=== PATIENT | male | born 1965 | race Caucasian/White ===

== ENCOUNTER → 2018-01-16 09:19 | Outpatient (CLI) | payer OTHER, SELFPAY ==
[2018-01-16 10:43] LABS: Anion Gap 6 (5-15); BUN 20 mg/dL (7-18); BUN/Creat Ratio 20.6 RATIO (10-20); Calcium,Total 8.8 mg/dL (8.5-10.1); Chloride 102 mmol/L (98-107); Creatinine, Serum 0.97 mg/dL (0.70-1.30); EST Glomerular Filtration Rate 86 mL/min (>60); Est Glom Filt Rate - Afr Amer 104 mL/min (>60); Glucose 95 mg/dL (74-106); Potassium 3.4 mmol/L (3.5-5.1); Sodium Level 139 mmol/L (136-145); Thyroid Stim Hormone (TSH) 2.48 uIU/mL (0.358-3.74)
== END ==
PROVIDERS: Family Provider Family Medicine; PCP Family Medicine; Visit Provider Family Medicine
DX: I10 Essential (primary) hypertension (principal)
CPT/HCPCS: 36415; 80048; 84443

== ENCOUNTER → 2018-02-25 13:29 | Outpatient (CLI) | payer OTHER, SELFPAY ==
--- NOTE | 2018-02-25 13:38 | STEWCON_ITS ---
Reason For Study: Chest Pain; Fatigue Stress Results Protocol: [place] Protocol Maximum Predicted HR: 167 bpm Target HR: 142 bpm% Max imum Predicted HR: 92 % DurationHeart Rate Stage (mm:ss) (bpm) BPCom ment Baseline 65 132/74 Definity 4 ML Given Diluted; No Chest Pain [place] Protocol Stage I 3:00 12 5 140/70No Chest Pain [place] Protocol Stage II 3:00 14 1 160/744/10 Right Sided Chest Pressure [place] Protocol Stage III 1:45 15 3 / 4/1 0 Chest Pressure, Moderate Dyspnea Recovery 90 124/80 No Chest Pain Stress Duration: 7:45 mm:ss Maximum Stress HR: 153 bpmM ETS: 10 Baseline Echocardiogram Findings The estimated ejection fraction is 65 %. Stress Echo Wall motion Data Resting WMIntermediate WMStress WM Resting Wall Motion Wall Motion Stress No regional wall motion Mid-Anterior : Severely abnormalities noted. Hypokinetic. Mid-anteroseptal : Severly Hypokinetic. Anterior [place] : Severly Hypokinetic. Ejection Fraction 45 %. EKG Data The baseline ECG demonstrates normal sinus rhythm with at rate of _ beats per minute. The patient exercised according to the regular [place] protocol for a total duration of 7:45. The maximum heart rate attained was 155 beats per minute. This was 92% of maximum predicted heart rate. The patient exercised into stage 3 of the [place] protocol. During stress, there were no ST or T wave changes noted to suggest ischemia. Interpretation Summary The study was technically difficult. Contrast injection was performed. The estimated ejection fraction is 65 %. Mid-Anterior : Severely Hypokinetic. Mid-anteroseptal : Severly Hypokinetic. Anterior [place] : Severly Hypokinetic. Ejection Fraction 45 %. Abnormal, adequate, treadmill echocardiogram. Positive for ischemia by echocardiographic criteria. The patient appeared to develop anterior apical hypokinesis at peak exercise. Patient also developed substernal chest pain at peak exercise. Average exercise capacity for age. No associated dynamic EKG changes noted. Rare PVCs, PACs, and ventricular couplets during exercise and into recovery. Average exercise capacity for age. Test terminated due to dyspnea and chest pain. Dr. Mosqueda's office notified and message left at 2:48 PM on 02/25/18. Final LVEF=45%. Ordering Physician: Kerry Mosqueda Referring Physician: Fish Palomares MD Performed By: Daria Rojsa RDCS
== END ==
PROVIDERS: Family Provider Family Medicine; PCP Family Medicine; Visit Provider Family Medicine
DX: R07.9 Chest pain, unspecified (principal); R53.83 Other fatigue
CPT/HCPCS: 93017; 93350; Q9957; A4216; C8928

== ENCOUNTER 2018-03-01 21:16 | Observation (INO) | payer OTHER, SELFPAY ==
[2018-03-01 21:16] VITALS: BP 181/70; PULSE 77; RESP 14; TEMP 37.1; O2SAT 99; BMI 37.9
--- NOTE | 2018-03-01 21:33 | EKG12_ITS ---
Test Reason : CP Blood Pressure : / mmHG Vent. Rate : 078 BPM Atrial Rate : 078 BPM P-R Int : 172 ms QRS Dur : 100 ms QT Int : 384 ms P-R-T Axes : 047 -06 028 degrees QTc Int : 437 ms Normal sinus rhythm Inferior infarct , age undetermined , cannot be excluded Abnormal ECG Confirmed by LORI YAP, CLAIR ([id number]), acquisition editor GIOVANA GREGORY ([id number] on 03/04/2018 2:49:05 PM Referred By: Kerry Mosqueda Confirmed By:CLAIR SANDOVAL MD
--- NOTE | 2018-03-01 21:34 | RAD_ITS ---
STUDY: X-RAY CHEST REASON FOR EXAM: Male, 52 years old. Chest pain. TECHNIQUE: Frontal and lateral views of the chest. COMPARISON: None. FINDINGS: The lungs are clear and expanded. There is no demonstrated pleural abnormality. Normal size heart. Normal mediastinum and sarai. Normal visualized pulmonary arteries. Normal visualized aortic arch and descending thoracic aorta. Normal visualized thoracic spine. Normal visualized ribs, clavicles, and shoulders. There is no demonstrated abnormality of the visualized soft tissue structures of the upper abdomen. RAD/Chest PA and Lateral IMPRESSION: Normal x-ray examination of the chest. Electronically Signed: Kody Gibson MD at 21:51 EDT , Service support ,
[2018-03-01] MEDS: Aspirin 81 MG TAB.CHEW 324 MG PO (21:37)
[2018-03-01 21:41] LABS: Absolute Lymphocyte Count 2.14 X10^3/ul (0.83-4.51); Absolute Neutrophil Count 4.4 X10^3/uL (2.0-7.7); Basophil# 0.02 X10^3/uL; Basophil% 0.3 % (0-1); Eosinophil# 0.14 X10^3/uL; Eosinophils% 1.8 % (0-5); Hemoglobin 14.8 g/dl (13.0-16.5); Lymphocyte # 2.14 X10^3/ul (4.0); Lymphocyte % 27.4 % (19-41); Mean Corp Hgb Conc 32.9 g/gl (32-36); Mean Corpuscular Hgb 29.2 pg (27.0-32.0); Mean Corpuscular Volume 88.9 fL (80-94); Mean Platelet Vol. 9.1 fl (6.2-12.0); Monocyte# 1.08 X10^3/uL; Monocyte% 13.8 % (0-10); Neutrophil # 4.43 X10^3/uL (2.7-7.7); Neutrophil % 56.6 % (47-70); Platelet Count 231 K/mm3 (150-450); RBC Distribution Width CV 13.1 % (11.6-14.6); Red Blood Count 5.06 M/mm3 (4.6-6.2); White Blood Count 7.8 K/mm3 (4.4-11.0)
[2018-03-01 21:43] LABS: POSITIVE COUNT NO; POSITIVE DIFFERENTIAL NO; POSITIVE MORPHOLOGY NO
[2018-03-01 21:58] LABS: Anion Gap 4 (5-15); BUN 21 mg/dL (7-18); BUN/Creat Ratio 20.2 RATIO (10-20); Calcium,Total 8.9 mg/dL (8.5-10.1); Chloride 104 mmol/L (98-107); Creatinine, Serum 1.04 mg/dL (0.70-1.30); EST Glomerular Filtration Rate 79 mL/min (>60); Est Glom Filt Rate - Afr Amer 96 mL/min (>60); Estimated Creatinine Clearance 82.14 ml/min; Glucose 91 mg/dL (74-106); Potassium 3.6 mmol/L (3.5-5.1); Sodium Level 139 mmol/L (136-145)
--- NOTE | 2018-03-01 22:23 | ED.VISSUMM ---
- ER Visit Summary Date of Service: 03/01/18 Chief Complaint: Chest pain History of Present Illness: The patient is a 52 M who presents with chest pain. He states that he has been having pain for the past 3 months. Pain is sharp. It is located on the left chest. It is worse with exertion. He also reports dyspnea on exertion. He reports diaphoresis with the symptoms. He recently had a positive stress echo. He was scheduled to see Dr. Palomares on Friday and for likely cardiac cath on Friday. However he states today his symptoms seem worse. His pain was 6 out of 10 but currently he has no pain. His pain lasts about 1 minute. It is on the left side of the chest and radiates through to the back. Currently he is completely asymptomatic. Physical Examination: Blood pressure 181/70 vitals otherwise unremarkable Moist mucous membranes Heart regular rate and rhythm Lungs are clear Abdomen soft Extremities nontender with 2+ radial pulses Alert Test Results: EKG shows sinus rhythm at a rate of 78 there are inferior Q waves in leads III and aVF do not appreciate ST segment changes or acute ischemic changes. Labs unremarkable with a negative troponin. Two-view chest x-ray is normal. 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 He has remained in symptomatic during his workup here in the emergency department. I spoke to Dr. Leonardo. He asked that we continue aspirin and Plavix. He asked that we give subcutaneous Lovenox and also start metoprolol. We will keep the patient n.p.o. after midnight for possible cardiac catheterization tomorrow. Patient will be admitted under the hospitalist service. Treatment Plan: [] Disposition: Admit Impression: Chest pain This note was generated with [employer] dictation software. It may contain incorrect words, spelling, and punctuation that were not noted in review of the chart prior to signing ED Disposition - Plan for ED Patient: Chief Complaint: Chest Pain Referrals: Ruba Howell DO [Primary Care Provider] -
[2018-03-01 23:15] VITALS: BP 139/66; PULSE 68; RESP 18; TEMP 36.7; O2SAT 100
[2018-03-01] MEDS: Metoprolol Tartrate 25 MG Tablet PO (23:20)
[2018-03-01] MEDS: Enoxaparin 120 MG/0.8 ML Syringe 110 MG SC (23:21)
--- NOTE | 2018-03-01 23:25 | PCM.HP.STD ---
Problem List (1) Chest pain Status: Acute (2) Abnormal cardiovascular stress test Status: Acute (3) Dyspnea Status: Chronic (4) Hyperlipidemia Status: Chronic (5) Hypertension Status: Chronic History of Present Illness Date of Admission: 03/01/18 Chief Complaint: Chest pain The patient is a 52 year old male w/ h/o CAD, lipidemia, and HTN admitted for chest pain. He had a recently positive stress test. He was told by his cardiology to go to the ED if worsening chest pain. He has been having chest pain for the past 3 months. The frequency and intensity of these episodes chest pain have increased. Several hours prior to admission, he felt pressure on the left side of his chest. It is associated with diaphoresis and SOB. Pain radiated to the back and he also has back pain as well. Nothing made it better or worse. Given that the symptoms did not resolved, he came into the ED for further workup. He was supposed to see Palomares on Friday and for likely cardiac cath on Friday. Past Medical History Past Medical History (Chronic Problems): Chronic Problems (Last Updated 02/26/18 @ 09:14 by Nancy Arellano) Dyspnea (Chronic) Hyperlipidemia (Chronic) Hypertension (Chronic) Chest pain (Chronic) Allergies No Known Allergies Allergy (Unverified 03/01/18 21:20) Home Medications: Ambulatory Orders Medication Instructions Recorded amlodipine 5 mg tablet 5 mg PO QDAY 02/26/18 aspirin 81 mg tablet,delayed 81 mg PO QDAY 02/26/18 release benazepril 20 1 tab PO BID 02/26/18 mg-hydrochlorothiazide 12.5 mg tablet clopidogrel 75 mg tablet 75 mg PO QDAY #30 tab 02/26/18 montelukast 10 mg tablet 10 mg PO DAILY@1200 02/26/18 Ketotifen Fumarate [Zaditor] 5 ml OP PRN PRN 03/02/18 Surgical History: no surgical history Lives: Spouse/ Significant Other Smoking Status: Never smoker Alcohol: None Drugs: None Review of Systems Constitutional: Denies: Chills, Fever, Weight Change HEENT: Denies: Head Aches, Sinus Congestion, Sinus Drainage Cardiovascular: Reports: Chest Pain, Palpitations Respiratory: Denies: Cough, Shortness of breath at rest, Sputum production Gastrointestinal: Denies: Abdominal Pain, Nausea, Vomiting Genitourinary: Denies: Dysuria Musculoskeletal: Denies: Joint Pain, Joint Tenderness Skin: Denies: Rash, Wounds Neurological: Denies: Numbness, Tingling, Focal weakness Psychiatric: Denies: Anxiety, Depression, Homicidal Ideations, Suicidal Ideations Hematologic/ Lymphatic: Denies: Easy Bruising, Easy Bleeding VTE Information - Inpt Only VTE Present on Admission: No VTE Mechan Device Prophylaxis: SCD's VTE Pharm Prophylaxis ordered?: Yes Patient Problems: Active and Suspected Problems (Last Updated 02/26/18 @ 09:14 by Nancy Arellano) Chest pain (Acute) - Physical Exam General: Alert, Oriented x3, Cooperative HEENT: Atraumatic, PERRLA, EOMI, Normocephalic Neck: Supple, No JVD, Negative Carotid Bruits Lungs: Clear to auscultation, Normal air movement Cardiovascular: Regular rate, No murmurs Abdomen: Bowel Sounds Present, Soft, Non Tender Extremities: No edema, Capillary Refill Less than 3 Seconds Skin: No rashes, No breakdown Musculoskeletal: No Tenderness to Palpation of Joints or Extremities Neurological: Cranial nerves II-XII grossly intact Psych/Mental Status: Normal Affect, Appropriate Vital Signs Temp Pulse Resp BP Pulse Ox 98.0 F 68 18 139/66 H 100 03/01/18 23:15 03/01/18 23:15 03/01/18 23:15 03/01/18 23:15 03/01/18 23:15 Oxygen Flow Rate (L/min) 2 Oxygen Delivery Method Nasal Cannula Weight: 116.5 kg Body Mass Index (BMI) 37.9 Laboratory Tests Past 24 Hrs 03/01/18 03/01/18 21:30 21:30 WBC 7.8 RBC 5.06 Hgb 14.8 Hct 45.0 MCV 88.9 MCH 29.2 MCHC 32.9 RDW 13.1 RDW Differential 42.0 Plt Count 231 MPV 9.1 Immature Gran % (Auto) 0.100 Neut % (Auto) 56.6 Lymph % (Auto) 27.4 [place] % (Auto) 13.8 H Eos % (Auto) 1.8 Baso % (Auto) 0.3 Absolute Neuts (auto) 4.4 Absolute Lymphs (auto) 2.14 Total Counted Not Reportable Sodium 139 Potassium 3.6 Chloride 104 Carbon Dioxide 31.0 Anion Gap 4 L BUN 21 H Creatinine 1.04 Estim Creat Clear Calc 82.14 Est GFR (MDRD) Af Amer 96 Est GFR (MDRD) Non-Af 79 BUN/Creatinine Ratio 20.2 H Glucose 91 Calcium 8.9 Troponin I < 0.015 Assessment/Plan Active and Suspected Problems (Last Updated 02/26/18 @ 09:14 by Nancy Arellano) Chest pain (Acute) 52 year old male w/ h/o CAD, lipidemia, and HTN admitted for chest pain. 1) Chest pain: Positive stress test. EKG disclosed no ST elevation. Trops negative. Cards will plan for cath in AM. Lovenox and metoprolol given. Resume home meds. 2) HTN: Resume home meds. 3) CAD: Resume home meds. Monitor.
[2018-03-01 23:54] VITALS: BP 140/81; PULSE 65; RESP 16; TEMP 36.8; O2SAT 97
[2018-03-01 23:56] VITALS: BMI 37.0
[2018-03-02] VITALS (25 sets, daily range): BP systolic 99–126; BP diastolic 54–77; PULSE 51–62; RESP 10–16; TEMP 36.6–37.1; O2SAT 94–100; BMI 37.1
[2018-03-02] MEDS: 0.9% Normal Saline 1,000 ML 125 ML IV (00:30)
[2018-03-02 04:17] LABS: Hematocrit 43.8 % (40-54); Hemoglobin 14.8 g/dl (13.0-16.5); Mean Corp Hgb Conc 33.8 g/gl (32-36); Mean Corpuscular Volume 88.7 fL (80-94); Mean Platelet Vol. 9.2 fl (6.2-12.0); Platelet Count 230 K/mm3 (150-450); RBC Distribution Width CV 12.9 % (11.6-14.6); Red Blood Count 4.94 M/mm3 (4.6-6.2); White Blood Count 6.9 K/mm3 (4.4-11.0)
[2018-03-02 04:23] LABS: Scan Indicated on CBC? Y/N NO
[2018-03-02 04:29] LABS: International Normalized Ratio 1.1; Prothrombin Time (Protime)PT. 13.7 SECONDS (11.7-14.9)
[2018-03-02 04:30] LABS: Partial Thromboplast Time 35.9 Seconds (24.1-36.2)
[2018-03-02 05:04] LABS: AST(SGOT) 20 U/L (15-37); Alanine Aminotransfer ALT/SGPT 41 U/L (16-61); Albumin, Serum 3.3 g/dL (3.2-5.0); Alkaline Phosphatase 48 U/L (45-117); Anion Gap 10 (5-15); BUN 18 mg/dL (7-18); BUN/Creat Ratio 22.4 RATIO (10-20); Calcium,Total 8.4 mg/dL (8.5-10.1); Chloride 106 mmol/L (98-107); Cholesterol 183 mg/dL (200); EST Glomerular Filtration Rate 107 mL/min (>60); Est Glom Filt Rate - Afr Amer 129 mL/min (>60); Estimated Creatinine Clearance 106.79 ml/min; Globulin 3.2 g/dL (2.2-4.2); Glucose 89 mg/dL (74-106); High Density Lipoprotein 34 mg/dL; Potassium 3.9 mmol/L (3.5-5.1); Protein, Total 6.5 g/dL (6.4-8.2); Sodium Level 142 mmol/L (136-145); Thyroid Stim Hormone (TSH) 4.27 uIU/mL (0.358-3.74); Triglycerides 109 mg/dL; Very Low Density Lipoprotein 22 mg/dL (5-40)
[2018-03-02 05:28] LABS: Color, Urine Yellow (Yellow); Glucose, Dipstick Normal (Normal); Ketone-Dipstick Negative (Negative); Leukocyte Esterase-Dipstick Negative /ul (Negative); Nitrite-Dipstick Negative (Negative); Occult Blood-Urine Negative /ul (Negative); Protein-Dipstick Negative (Negative); Urine Bilirubin Dipstick Negative (Negative); Urine Clarity Sl. Cloudy (Clear); Urine Urobilinogen Normal (Normal)
--- NOTE | 2018-03-02 08:58 | PCM.CONS.C ---
Problem List (1) Unstable angina pectoris Status: Acute (2) Hyperlipidemia Status: Chronic (3) Hypertension Status: Chronic (4) Abnormal cardiovascular stress test Status: Acute Reason for Consult Date of Consultation: 03/02/18 History of Present Illness: The patient is a 52 year old white male with a past medical history which has included hyperlipidemia and hypertension who is being referred for concerns of unstable angina pectoris. He states that since November he has been having various forms of chest discomfort which include a heavy weight sensation on his chest both right and left sided, radiation to his left neck and left jaw, associated shortness of breath/dyspnea, as well as potentially diaphoretic episodes. He does not recall associated nausea or emesis. There has been no orthopnea, PND, or peripheral pitting edema above and beyond what he believes is related to his antihypertensive therapy with respect to amlodipine. There has been no near syncope or syncope. His symptoms have progressively been getting worse. Thus, he was recently referred for a stress echocardiogram. This was performed on 02/25/2018. According to the report he exercised on a [place] protocol for 7 minutes 45 seconds achieving a peak heart rate of 167 bpm (92% predicted maximal heart rate) with a peak blood pressure of 160/74 mmHg and a peak metabolic component equivalent of 10 metabolic equivalents. His baseline ECG demonstrated normal sinus rhythm. He had no exercise-induced ST or T-wave changes. His echocardiographic images were reported as technically difficult requiring IV contrast enhancement. His LVEF at rest was 65%. At exercise he developed regional wall motion abnormalities in the anterior, anteroseptal, and apical areas with an LVEF declining to 45%. He was subsequently referred for outpatient cardiovascular consultation. In the interim he was placed on additional medical management with clopidogrel/Plavix. However, since his stress test, he notes his symptoms have been worsening. Thus he presented to [facility] for further evaluation. He underwent cardiac enzymes which were reported as negative. He had an ECG performed which demonstrated normal sinus rhythm with an inferior CT pattern of indeterminate age cannot be excluded. This was repeated with no significant change. Chest x-ray was performed which suggested no acute changes. He was treated medically. He states he did have an exercise tolerance test performed several years ago. According to him that test was unremarkable. [] Past Medical History Allergies/Adverse Reactions: Allergies Seasonal Allergy (Uncoded 03/02/18 00:09) Other Home Medications: Ambulatory Orders Medication Instructions Recorded amlodipine 5 mg tablet 5 mg PO QDAY 02/26/18 aspirin 81 mg tablet,delayed 81 mg PO QDAY 02/26/18 release benazepril 20 1 tab PO BID 02/26/18 mg-hydrochlorothiazide 12.5 mg tablet clopidogrel 75 mg tablet 75 mg PO QDAY #30 tab 02/26/18 montelukast 10 mg tablet 10 mg PO DAILY@1200 02/26/18 Ketotifen Fumarate [Zaditor] 5 ml OP PRN PRN 03/02/18 Past Medical History (Chronic Problems): Chronic Problems (Last Updated 02/26/18 @ 09:14 by Nancy Arellano) Dyspnea (Chronic) Hyperlipidemia (Chronic) Hypertension (Chronic) Chest pain (Chronic) Surgical History: no surgical history Lives: Spouse/ Significant Other Smoking Status: Never smoker Tobacco Use: Cigarettes Alcohol: None Drugs: None Review of Systems - Review of Systems General: Denies: Fever, Night Sweats, Fatigue Cardiovascular: Reports: Chest Discomfort, Chest Discomfort at Rest, Chest Discomfort with Exertion, Shortness of Breath, Shortness of Breath with Exertion, Peripheral Edema. Denies: Orthopnea, PND, Palpitations, Lightheadedness, Dizziness, Near Syncope, Syncope Respiratory: Reports: Shortness of Breath. Denies: Cough, Sputum Production, Hemoptysis Gastrointestinal: Denies: Hematemesis, Hematochezia, Melena Genitourinary: Denies: Dysuria, Hematuria Subjectve: Is a 52-year-old white male who appears to be resting comfortably at the moment in no acute distress. Objective: Vital Signs Temp Pulse Resp BP Pulse Ox 97.9 F 56 L 12 119/66 95 03/02/18 04:34 03/02/18 07:13 03/02/18 04:34 03/02/18 04:34 03/02/18 07:48 Oxygen Delivery Method Room Air Weight: 251 lb 5.231 oz Body Mass Index (BMI) 37.0 Intake and Output for Last 24 Hours 02/28/18 03/01/18 03/02/18 23:59 23:59 23:59 Intake Total 643 / 643 Output Total 0 / 0 Balance 643 / 643 General: Awake, Alert, Oriented x 3, Cooperative, No Acute Distress HEENT: Atraumatic, Normocephalic, PERRL, EOMI, Sclera Non Icteric Neck: Supple, Good ROM, No JVD Lungs: Clear to auscultation Cardiovascular: Regular Rhythm, Normal S1, Normal S2, Positive S4 Vascular: No Carotid Bruits, Normal Femoral Pulses, Normal Radial Pulses Abdomen: Bowel Sounds Present, Soft, Non Tender Extremities: No Cyanosis, No Clubbing, No edema Neurological: No Focal Motor or Sensory Deficit Psych/Mental Status: Appropriate, Normal Affect 03/02/18 00:42: Troponin I < 0.015 03/02/18 03:30: Urine Color Yellow, Urine Clarity Sl. Cloudy, Urine pH 7.0, Ur Specific [place] 1.010, Urine Protein Negative, Urine Glucose (UA) Normal, Urine Ketones Negative, Urine Occult Blood Negative, Urine Nitrite Negative, Urine Bilirubin Negative, Urine Urobilinogen Normal, Ur Leukocyte Esterase Negative 03/02/18 03:42: WBC 6.9, RBC 4.94, Hgb 14.8, Hct 43.8, MCV 88.7, MCH 30.0, MCHC 33.8, RDW 12.9, RDW Differential 42.0, Plt Count 230, MPV 9.2 03/02/18 03:42: Sodium 142, Potassium 3.9, Chloride 106, Carbon Dioxide 26.0, Anion Gap 10, BUN 18, Creatinine 0.80, Est GFR (MDRD) Af Amer 129, Est GFR (MDRD) Non-Af 107, BUN/Creatinine Ratio 22.4 H, Glucose 89, Calcium 8.4 L, Total Bilirubin 0.40, Triglycerides 109, Cholesterol 183, LDL Cholesterol 127, VLDL Cholesterol 22, HDL Cholesterol 34 L 03/02/18 03:42: Troponin I < 0.015 03/02/18 03:42: PT 13.7, INR 1.1, APTT 35.9 Rhythm: Sinus rhythm EKG: As noted above Stress Test: As noted above CXR: As noted above Assessment/Plan 1. Unstable angina pectoris The patient presents with symptoms compatible with angina pectoris which appears to be unstable based upon its acceleration. He has been found to have a recent abnormal stress echocardiogram. His cardiac enzymes have remained negative. His ECG is demonstrated no new acute changes. He has been treated medically with aspirin, antiplatelet therapy, beta-blockers, ANDREA inhibitors, lipid-lowering agents, and anticoagulant agents, etc. At the present time is felt the patient should be further evaluated in the cardiac catheterization laboratory. Depending upon the findings he may or may not require additional cardiac diagnostic studies/therapeutic intervention. The catheterization procedure and risks were discussed with him. He was agreeable to this approach. 2. Hyperlipidemia She will need to continue risk factor modification and care as deemed appropriate. 3. Hypertension He will continue and hypertensive therapy. He believes since being on amlodipine therapy he has had some edema in the ankle area. Thus, depending upon his clinical course, this may need to be adjusted over time. Comment: The above was discussed with the patient and his daughter a [facility] echocardiographic billing and quality technician. This note was generated with [employer] dictation software. It may contain incorrect words, spelling, and punctuation that were not noted in checking the note before signing.
--- NOTE | 2018-03-02 09:08 | CON.PCM_ITS ---
Problem List (1) Unstable angina pectoris Status: Acute (2) Hyperlipidemia Status: Chronic (3) Hypertension Status: Chronic (4) Abnormal cardiovascular stress test Status: Acute Reason for Consult Date of Consultation: 03/02/18 History of Present Illness: The patient is a 52 year old white male with a past medical history which has included hyperlipidemia and hypertension who is being referred for concerns of unstable angina pectoris. He states that since November he has been having various forms of chest discomfort which include a heavy weight sensation on his chest both right and left sided, radiation to his left neck and left jaw, associated shortness of breath/dyspnea, as well as potentially diaphoretic episodes. He does not recall associated nausea or emesis. There has been no orthopnea, PND, or peripheral pitting edema above and beyond what he believes is related to his antihypertensive therapy with respect to amlodipine. There has been no near syncope or syncope. His symptoms have progressively been getting worse. Thus, he was recently referred for a stress echocardiogram. This was performed on 02/25/2018. According to the report he exercised on a [place] protocol for 7 minutes 45 seconds achieving a peak heart rate of 167 bpm ( 92% predicted maximal heart rate) with a peak blood pressure of 160/74 mmHg and a peak metabolic component equivalent of 10 metabolic equivalents. His baseline ECG demonstrated normal sinus rhythm. He had no exercise-induced ST or T-wave changes. His echocardiographic images were reported as technically difficult requiring IV contrast enhancement. His LVEF at rest was 65%. At exercise he developed regional wall motion abnormalities in the anterior, anteroseptal, and apical areas with an LVEF declining to 45%. He was subsequently referred for outpatient cardiovascular consultation. In the interim he was placed on additional medical management with clopidogrel/Plavix. However, since his stress test, he notes his symptoms have been worsening. Thus he presented to [facility] for further evaluation. He underwent cardiac enzymes which were reported as negative. He had an ECG performed which demonstrated normal sinus rhythm with an inferior GA pattern of indeterminate age cannot be excluded. This was repeated with no significant change. Chest x-ray was performed which suggested no acute changes. He was treated medically. He states he did have an exercise tolerance test performed several years ago. According to him that test was unremarkable. [] Past Medical History Allergies/Adverse Reactions: Allergies Seasonal Allergy (Uncoded 03/02/18 00:09) Other Home Medications: Ambulatory Orders Medication Instructions Recorded amlodipine 5 mg tablet 5 mg PO QDAY 02/26/18 aspirin 81 mg tablet,delayed 81 mg PO QDAY 02/26/18 release benazepril 20 1 tab PO BID 02/26/18 mg-hydrochlorothiazide 12.5 mg tablet clopidogrel 75 mg tablet 75 mg PO QDAY #30 tab 02/26/18 montelukast 10 mg tablet 10 mg PO DAILY@1200 02/26/18 Ketotifen Fumarate [Zaditor] 5 ml OP PRN PRN 03/02/18 Past Medical History (Chronic Problems): Chronic Problems (Last Updated 02/26/18 @ 09:14 by Nancy Arellano) Dyspnea (Chronic) Hyperlipidemia (Chronic) Hypertension (Chronic) Chest pain (Chronic) Surgical History: no surgical history Lives: Spouse/ Significant Other Smoking Status: Never smoker Tobacco Use: Cigarettes Alcohol: None Drugs: None Review of Systems - Review of Systems General: Denies: Fever, Night Sweats, Fatigue Cardiovascular: Reports: Chest Discomfort, Chest Discomfort at Rest, Chest Discomfort with Exertion, Shortness of Breath, Shortness of Breath with Exertion , Peripheral Edema. Denies: Orthopnea, PND, Palpitations, Lightheadedness, Dizziness, Near Syncope, Syncope Respiratory: Reports: Shortness of Breath. Denies: Cough, Sputum Production, Hemoptysis Gastrointestinal: Denies: Hematemesis, Hematochezia, Melena Genitourinary: Denies: Dysuria, Hematuria Subjectve: Is a 52-year-old white male who appears to be resting comfortably at the moment in no acute distress. Objective: Vital Signs Temp Pulse Resp BP Pulse Ox 97.9 F 56 L 12 119/66 95 03/02/18 04:34 03/02/18 07:13 03/02/18 04:34 03/02/18 04:34 03/02/18 07:48 Oxygen Delivery Method Room Air Weight: 251 lb 5.231 oz Body Mass Index (BMI) 37.0 Intake and Output for Last 24 Hours 02/28/18 03/01/18 03/02/18 23:59 23:59 23:59 Intake Total 643 / 643 Output Total 0 / 0 Balance 643 / 643 General: Awake, Alert, Oriented x 3, Cooperative, No Acute Distress HEENT: Atraumatic, Normocephalic, PERRL, EOMI, Sclera Non Icteric Neck: Supple, Good ROM, No JVD Lungs: Clear to auscultation Cardiovascular: Regular Rhythm, Normal S1, Normal S2, Positive S4 Vascular: No Carotid Bruits, Normal Femoral Pulses, Normal Radial Pulses Abdomen: Bowel Sounds Present, Soft, Non Tender Extremities: No Cyanosis, No Clubbing, No edema Neurological: No Focal Motor or Sensory Deficit Psych/Mental Status: Appropriate, Normal Affect 03/02/18 00:42: Troponin I < 0.015 03/02/18 03:30: Urine Color Yellow, Urine Clarity Sl. Cloudy, Urine pH 7.0, Ur Specific [place] 1.010, Urine Protein Negative, Urine Glucose (UA) Normal, Urine Ketones Negative, Urine Occult Blood Negative, Urine Nitrite Negative, Urine Bilirubin Negative, Urine Urobilinogen Normal, Ur Leukocyte Esterase Negative 03/02/18 03:42: WBC 6.9, RBC 4.94, Hgb 14.8, Hct 43.8, MCV 88.7, MCH 30.0, MCHC 33.8, RDW 12.9, RDW Differential 42.0, Plt Count 230, MPV 9.2 03/02/18 03:42: Sodium 142, Potassium 3.9, Chloride 106, Carbon Dioxide 26.0, Anion Gap 10, BUN 18, Creatinine 0.80, Est GFR (MDRD) Af Amer 129, Est GFR (MDRD ) Non-Af 107, BUN/Creatinine Ratio 22.4 H, Glucose 89, Calcium 8.4 L, Total Bilirubin 0.40, Triglycerides 109, Cholesterol 183, LDL Cholesterol 127, VLDL Cholesterol 22, HDL Cholesterol 34 L 03/02/18 03:42: Troponin I < 0.015 03/02/18 03:42: PT 13.7, INR 1.1, APTT 35.9 Rhythm: Sinus rhythm EKG: As noted above Stress Test: As noted above CXR: As noted above Assessment/Plan 1. Unstable angina pectoris The patient presents with symptoms compatible with angina pectoris which appears to be unstable based upon its acceleration. He has been found to have a recent abnormal stress echocardiogram. His cardiac enzymes have remained negative. His ECG is demonstrated no new acute changes. He has been treated medically with aspirin, antiplatelet therapy, beta-blockers , ANDREA inhibitors, lipid-lowering agents, and anticoagulant agents, etc. At the present time is felt the patient should be further evaluated in the cardiac catheterization laboratory. Depending upon the findings he may or may not require additional cardiac diagnostic studies/therapeutic intervention. The catheterization procedure and risks were discussed with him. He was agreeable to this approach. 2. Hyperlipidemia She will need to continue risk factor modification and care as deemed appropriate. 3. Hypertension He will continue and hypertensive therapy. He believes since being on amlodipine therapy he has had some edema in the ankle area. Thus, depending upon his clinical course, this may need to be adjusted over time. Comment: The above was discussed with the patient and his daughter a [facility] echocardiographic coding technician. This note was generated with [employer] dictation software. It may contain incorrect words, spelling, and punctuation that were not noted in checking the note before signing.
--- NOTE | 2018-03-02 09:09 | PCM.PROGNOTE ---
Patient Problems: Active and Suspected Problems (Last Updated 02/26/18 @ 09:14 by Nancy Arellano) Chest pain (Acute) Unstable angina pectoris (Acute) Subjective: Chief complaint: Follow-up after admission for unstable angina in context of recent history of abnormal stress test. Patient seen and examined. No acute events overnight. He had no more chest pain. Denied shortness of breath. He is asymptomatic this morning. Vital signs are stable. - Physical Exam General: Alert, Oriented x3, Cooperative, No apparent distress HEENT: Atraumatic, PERRLA, EOMI Oral: Moist Mucosa, No Gingival or Mucosal Lesions/ Ulcerations Neck: Supple, No JVD, Negative Carotid Bruits, Trachea Midline, Thyroid Normal Size and Texture Lungs: Clear to auscultation, No rhonchi, No wheeze, Diminished Cardiovascular: Regular rate, Regular Rhythm, Normal S1, Normal S2, No murmurs, PMI Normal Abdomen: Bowel Sounds Present, Soft, Non Tender, Non-Distended, No Hepato-splenomegaly Extremities: No clubbing, No cyanosis, No edema Skin: No rashes, No breakdown Lymphatic: No Cervical, Supraclavicular, or Inguinal Adenopathy Neurological: Cranial nerves II-XII grossly intact, Motor Exam 5/5 strength throughout Psych/Mental Status: Normal Affect, Appropriate, Alert and oriented to time, place, person, mood and affect Vital Signs Temp Pulse Resp BP Pulse Ox 97.9 F 56 L 12 119/66 95 03/02/18 04:34 03/02/18 07:13 03/02/18 04:34 03/02/18 04:34 03/02/18 07:48 Oxygen Delivery Method Room Air Weight: 251 lb 5.231 oz Body Mass Index (BMI) 37.0 Intake and Output for Last 24 Hours 02/28/18 03/01/18 03/02/18 23:59 23:59 23:59 Intake Total 643 / 643 Output Total 0 / 0 Balance 643 / 643 Laboratory Tests Past 24 Hrs 03/02/18 03/02/18 03/02/18 00:42 03:30 03:42 WBC 6.9 RBC 4.94 Hgb 14.8 Hct 43.8 MCV 88.7 MCH 30.0 MCHC 33.8 RDW 12.9 RDW Differential 42.0 Plt Count 230 MPV 9.2 PT INR APTT Sodium Potassium Chloride Carbon Dioxide Anion Gap BUN Creatinine Estim Creat Clear Calc Est GFR (MDRD) Af Amer Est GFR (MDRD) Non-Af BUN/Creatinine Ratio Glucose Calcium Total Bilirubin AST ALT Alkaline Phosphatase Troponin I < 0.015 Total Protein Albumin Globulin Albumin/Globulin Ratio Triglycerides Cholesterol LDL Cholesterol VLDL Cholesterol HDL Cholesterol TSH Urine Color Yellow Urine Clarity Sl. Cloudy Urine pH 7.0 Ur Specific [place] 1.010 Urine Protein Negative Urine Glucose (UA) Normal Urine Ketones Negative Urine Occult Blood Negative Urine Nitrite Negative Urine Bilirubin Negative Urine Urobilinogen Normal Ur Leukocyte Esterase Negative 03/02/18 03/02/18 03/02/18 03:42 03:42 03:42 WBC RBC Hgb Hct MCV MCH MCHC RDW RDW Differential Plt Count MPV PT 13.7 INR 1.1 APTT 35.9 Sodium 142 Potassium 3.9 Chloride 106 Carbon Dioxide 26.0 Anion Gap 10 BUN 18 Creatinine 0.80 Estim Creat Clear Calc 106.79 Est GFR (MDRD) Af Amer 129 Est GFR (MDRD) Non-Af 107 BUN/Creatinine Ratio 22.4 H Glucose 89 Calcium 8.4 L Total Bilirubin 0.40 AST 20 ALT 41 Alkaline Phosphatase 48 Troponin I < 0.015 Total Protein 6.5 Albumin 3.3 Globulin 3.2 Albumin/Globulin Ratio 1.0 Triglycerides 109 Cholesterol 183 LDL Cholesterol 127 VLDL Cholesterol 22 HDL Cholesterol 34 L TSH 4.27 H Urine Color Urine Clarity Urine pH Ur Specific [place] Urine Protein Urine Glucose (UA) Urine Ketones Urine Occult Blood Urine Nitrite Urine Bilirubin Urine Urobilinogen Ur Leukocyte Esterase Medical Necessity - Tobacco Use Smoking Status: Never smoker Assessment/Plan Active and Suspected Problems (Last Updated 02/26/18 @ 09:14 by Nancy Arellano) Chest pain (Acute) Unstable angina pectoris (Acute) This is a 52 years old male patient presented to the medicine because of chest pain, admitted for unstable angina for evaluation. #1 chest pain/unstable angina: His EKG revealed no evidence of acute ischemic changes. Troponin are negative ?3. Today, is chest pain-free. Vital signs are stable. He is on aspirin, statins, Plavix, started on metoprolol and lisinopril today. He had stress echocardiogram on February 22, 2018 that was abnormal and positive for ischemia by echocardiographic criteria. Cardiology consulted, plan for cardiac catheterization today. #2 hypertension: Blood pressure stable, continue Norvasc and started on metoprolol as above. #3 hyperlipidemia: On statins. #4 DVT prophylaxis: Low risk patient, no prophylaxis indicated. This note was generated with [employer] dictation software. It may contain incorrect words, spelling, and punctuation that were not noted in checking the note before signing. Code Visit Inpatient E&M: 26806 Subs Hosp L2
[2018-03-02] MEDS: Aspirin E.C. 81 MG Tablet PO (09:44)
[2018-03-02] MEDS: Metoprolol Tartrate 25 MG Tablet PO (09:44)
[2018-03-02] MEDS: amLODIPine 5 MG Tablet PO (09:44)
[2018-03-02] MEDS: Clopidogrel Bisulfate 75 MG Tablet PO (09:45)
[2018-03-02] MEDS: Lisinopril 20 MG Tablet PO ×2 (09:45→21:34)
[2018-03-02] MEDS: 0.9% Normal Saline 1,000 ML 75 ML IV (10:20)
[2018-03-02] MEDS: 0.9% Normal Saline 1,000 ML 15 ML IV (10:47)
--- NOTE | 2018-03-02 12:27 | CL.D_ITS ---
Patient Name: JANICE CLARK Study Date: 03/02/2018 Performing: Gustavo Leonardo MD Ht: 68.89 inches 175 cm : 1965 Wt: 251.33 lbs 114 kg Age: 52 Gender: male BSA: 2.27 PROCEDURE(S) PERFORMED [id number]/LV [id number] W OR WO PTCA, SINGLE CORONARY ARTERY CLINICAL PROFILE AND INDICATIONS Indications: Worsening Angina Heart Failure: None Stress/Imaging Stress Echocardiogram: Yes Result: PositiveStress Echocardiogram: Positive CAD Presentations: Unstable angina. CONCLUSIONS Elevated Left Ventricular End Diastolic Pressure Normal LV size, wall motion,and systolic function LVEF: by LV gram 60 % Single vessel CAD of the LAD RECOMMENDATIONS Risk factor modification Medical therapy Referred for immediate PCI DESCRIPTION OF PROCEDURE The patient arrived to the procedure lab. The risks and benefits of the procedure as well as a full d escription of our services here and current unavailability of surgical backup were fully explained to the patient and/or their significant other prior to the catheterization. The Timeout was completed, verifying the correct patient and procedure. The patient's procedural site was prepped and draped in the usual fashion. Local anesthetic was given subcutaneously to right radial region with Lidocaine 2% . Using a modified Seldinger technique, arterial access was obtained via the right radial artery, a 6 Fr sheath was inserted. Right Coronary Artery selective angiography was then performed in multiple v iews using a 5 Fr. 4.0 [place] catheter. Left Coronary Artery selective angiography was performed in mu ltiple views using a 5 Fr. 4.0 [place] catheter. Left Ventriculography was performed in MISTRY projection using a 5 Fr. [place] catheter. LV to AO pullback pressures were then recorded. CORONARY ANGIOGRAPHY DOMINANCE: Left Dominant LEFT HEART ASSESSMENT Left Ventricular Ejection Fraction: by LV Gram 60 % Normal LV wall motion Elevated Left Ventricular End Diastolic Pressure LVEDP: 32 mmHg LEFT MAIN: Angiographically normal LEFT ANTERIOR DECENDING ARTERY: PROX LAD: Mild luminal irregularities MID LAD: S/P SP and DX: subtotal occlusion with the remainder of the vessel filling late CIRCUMFLEX ARTERY: Mild luminal irregularities RIGHT CORONARY ARTERY: Mild luminal irregularities VALVE FINDINGS: Normal Aortic Valve function Normal Mitral Valve function AORTIC ROOT: Angiographically normal COMPLICATIONS No Complications PROCEDURE MEDICATIONS Fentanyl 50 mcg IV Versed 1 mg IV Fentanyl 50 mcg IV Versed 1 mg IV Oxygen: 2 L/min via nasal cannula Heparin diluted in 23cc Heparinized saline. Patient given 10cc IA of this solution. 03/02/2018 11:33: 43 Heparin 67777 unit(s) IV 03/02/2018 12:01:33 Nitro 100 mcg IC 03/02/2018 12:11:11 Nitro 200 mcg IC 03/02/2018 12:15:36 Plavix 300 mg PO 03/02/2018 12:23:33 Verapamil 2.5mg, Ntg 100mcgs, 2000 units of Heparin diluted in 23cc Heparinized saline. Patient give n 10cc IA of this solution. 03/02/2018 11:33:43 SUMMARY OF HEMODYNAMIC DATA Time AIR REST ECG 11:14:13 AO 124/79 (97) SA 11:37:34 LV 120/13, 28 11:50:14 LV 118/15, 32 11:50:23 LV 116/21, 31 11:51:49 LVp 118/17, 26 11:51:56 AOp 115/70 (89) 11:52:01 AO 130/79 (100) 12:02:42 Signed By Gustavo Leonardo MD On 03/02/2018 12:26:31 Gustavo Leonardo MD
--- NOTE | 2018-03-02 12:40 | CL.I_ITS ---
Patient Name: JANICE CLARK Study Date: 03/02/2018 Performing: Kenji Dean MD Ht: 68.89 inches 175 cm : 1965 Wt: 251.33 lbs 114 kg Age: 52 Gender: male BSA: 2.27 PROCEDURE(S) PERFORMED [id number] W OR WO PTCA, SINGLE CORONARY ARTERY CLINICAL PROFILE AND CO-MORBIDITIES Indications: Worsening Angina Heart Failure: None Stress/Imaging Stress Echocardiogram: Yes Result: Positive Stress Echocardiogram: Positive CAD Presentations: Unstable angina. CONCLUSIONS Successful PTCA/LA NENA of the Mid LAD using Resolute 3.0x15 mm, post-dilated using 3.5 mm balloon RECOMMENDATIONS ASA Indefinitley Plavix for at least 12 months Follow up with Dr. Leonardo INTERVENTION INFORMATION LESION SITE: LAD (Mid) Lesion Complexity: Non-High/Non-C, chronic total occlusion: No, culprit lesion: Yes Pre Stenosis: 100 % Pre intervention DILLAN flow: 0 PROCEDURE: Drug Eluting Stent with pre and post dilatation Post Stenosis: 0 % Post intervention DILLAN flow: 3 Lesion Devices: Allostera [employer]um[employer] .014 Runthrough Extra Floppy 180cm straight Cordis 6 Fr XB3.0 100cm Guide Catheter Javed Sci EMERGE MR 3.00x12 BALLOON Medtronic Resolute RX LA NENA 3.0x15 Javed Sci NC EMERGE MR 3.50x08 BALLOON COMPLICATIONS No Complications PROCEDURE MEDICATIONS Fentanyl 50 mcg IV Versed 1 mg IV Fentanyl 50 mcg IV Versed 1 mg IV Oxygen: 2 L/min via nasal cannula Heparin diluted in 23cc Heparinized saline. Patient given 10cc IA of this solution. 03/02/2018 11:33: 43 Heparin 56339 unit(s) IV 03/02/2018 12:01:33 Nitro 100 mcg IC 03/02/2018 12:11:11 Nitro 200 mcg IC 03/02/2018 12:15:36 Plavix 300 mg PO 03/02/2018 12:23:33 Verapamil 2.5mg, Ntg 100mcgs, 2000 units of Heparin diluted in 23cc Heparinized saline. Patient give n 10cc IA of this solution. 03/02/2018 11:33:43 SUMMARY OF HEMODYNAMIC DATA Time AIR REST ECG 11:14:13 AO 124/79 (97) SA 11:37:34 LV 120/13, 28 11:50:14 LV 118/15, 32 11:50:23 LV 116/21, 31 11:51:49 LVp 118/17, 26 11:51:56 AOp 115/70 (89) 11:52:01 AO 130/79 (100) 12:02:42 Signed By Kenji Dean MD On 03/02/2018 12:39:48 Kenji Dean MD
--- NOTE | 2018-03-02 12:41 | NURSING ---
Nursing report called to [facility] in ICU for transfer to room 201 from chemical lab supervisor
[2018-03-02] MEDS: 0.9% Normal Saline 1,000 ML 150 ML IV (12:45)
[2018-03-02 12:46] LABS: ACT Activated Clotting Time 246 sec (74-137)
[2018-03-02 15:07] LABS: M R Staph aureus DNA By PCR Negative (Negative); Probe Check PASS; Specimen Processing Control PASS
[2018-03-02] MEDS: Acetaminophen 325 MG Tablet 650 MG PO (17:09)
[2018-03-02] MEDS: hydroCHLOROthiazide 25 MG Tablet 12.5 MG PO (21:33)
[2018-03-02] MEDS: Atorvastatin Calcium 40 MG Tablet PO (21:33)
[2018-03-02] MEDS: Montelukast 10 MG Tablet PO (21:33)
[2018-03-03] VITALS (17 sets, daily range): BP systolic 110–153; BP diastolic 51–84; PULSE 48–66; RESP 10–18; TEMP 36.5–36.7; O2SAT 93–99
[2018-03-03 04:36] LABS: Hemoglobin 14.6 g/dl (13.0-16.5); Mean Corp Hgb Conc 33.2 g/gl (32-36); Mean Corpuscular Hgb 29.4 pg (27.0-32.0); Mean Corpuscular Volume 88.7 fL (80-94); Platelet Count 202 K/mm3 (150-450); RBC Distribution Width SD 41.8 fl (35.1-43.9); Red Blood Count 4.96 M/mm3 (4.6-6.2); White Blood Count 6.7 K/mm3 (4.4-11.0)
[2018-03-03 04:38] LABS: Scan Indicated on CBC? Y/N NO
[2018-03-03 04:45] LABS: Anion Gap 7 (5-15); BUN 14 mg/dL (7-18); BUN/Creat Ratio 18.7 RATIO (10-20); Calcium,Total 8.4 mg/dL (8.5-10.1); Chloride 106 mmol/L (98-107); Creatinine, Serum 0.75 mg/dL (0.70-1.30); EST Glomerular Filtration Rate 116 mL/min (>60); Est Glom Filt Rate - Afr Amer 141 mL/min (>60); Estimated Creatinine Clearance 113.91 ml/min; Glucose 95 mg/dL (74-106); Sodium Level 142 mmol/L (136-145)
[2018-03-03] MEDS: Acetaminophen 325 MG Tablet 650 MG PO (05:53)
--- NOTE | 2018-03-03 05:55 | EKG12_ITS ---
Test Reason : AM EKG Blood Pressure : / mmHG Vent. Rate : 057 BPM Atrial Rate : 057 BPM P-R Int : 180 ms QRS Dur : 112 ms QT Int : 434 ms P-R-T Axes : 035 -06 024 degrees QTc Int : 422 ms Sinus bradycardia Otherwise normal ECG When compared with ECG of 02-MAR-2018 12:53, MANUAL COMPARISON REQUIRED, DATA IS UNCONFIRMED Confirmed by CIRILO YAP, CLAUDY ([id number]), supervising editor trailer GIOVANA GREGORY ([id number]) on 03/19/2018 4:58:01 PM Referred By: MADELIN Confirmed By:CLAUDY KERR MD
[2018-03-03] MEDS: Clopidogrel Bisulfate 75 MG Tablet PO (09:41)
[2018-03-03] MEDS: hydroCHLOROthiazide 25 MG Tablet 12.5 MG PO (09:41)
[2018-03-03] MEDS: Metoprolol Tartrate 25 MG Tablet PO (09:42)
[2018-03-03] MEDS: Aspirin E.C. 81 MG Tablet PO (09:43)
[2018-03-03] MEDS: Lisinopril 20 MG Tablet PO (09:43)
[2018-03-03] MEDS: amLODIPine 5 MG Tablet PO (09:43)
--- NOTE | 2018-03-03 11:01 | PCM.DC ---
- Discharge Diagnoses Current Active Problems: Current Active and Chronic Problems (Last Updated 02/26/18 @ 09:14 by Nancy Arellano) Chest pain (Acute) Unstable angina pectoris (Acute) You will use the following diet at home:: Cardiac Discharge Activity: Return to Normal Activity Instructions: ED Chest Pain NonCardiac Allergies/Adverse Reactions: Allergies Seasonal Allergy (Uncoded 03/02/18 00:09) Other Medications to take at Discharge amlodipine 5 mg tablet 5 mg PO QDAY 02/26/18 aspirin 81 mg tablet,delayed release 81 mg PO QDAY 02/26/18 benazepril 20 mg-hydrochlorothiazide 12.5 mg tablet 1 tab PO BID 02/26/18 clopidogrel 75 mg tablet 75 mg PO QDAY #30 tab 02/26/18 montelukast 10 mg tablet 10 mg PO DAILY@1200 02/26/18 Ketotifen Fumarate [Zaditor] 5 ml OP PRN PRN 03/02/18 Clopidogrel Bisulfate [Plavix] 75 mg PO DAILY 30 Days #30 tab 03/03/18 Metoprolol Tartrate [Lopressor (beta nora)] 25 mg PO BID #60 tab 03/03/18 The following prescriptions were given: Clopidogrel Bisulfate [Plavix] 75 mg PO DAILY 30 Days #30 tab Metoprolol Tartrate [Lopressor (beta nora)] 25 mg PO BID #60 tab Primary Care Physician: Ruba Howell DO [Primary Care Provider] - Within 2 Weeks Please Follow Up With: Gustavo Leonardo MD - 2-3 weeks. Proposed Discharge Date: 03/03/18
--- NOTE | 2018-03-03 11:03 | PCM.DC.SUM ---
Discharge Date and Diagnosis Date of Admission: 03/01/18 Date of Discharge: 03/03/18 - Primary Discharge Diagnosis Active and Suspected Problems (Last Updated 02/26/18 @ 09:14 by Nancy Arellano) Chest pain (Acute) Unstable angina pectoris (Acute) - Secondary Discharge Diagnosis Chronic Problems (Last Updated 02/26/18 @ 09:14 by Nancy Arellano) Dyspnea (Chronic) Hyperlipidemia (Chronic) Hypertension (Chronic) Chest pain (Chronic) Hospital Course and Treatment Summary of Care Provided: he patient is a 52 year old male w/ h/o CAD, lipidemia, and HTN admitted for chest pain. He had a recently positive stress test. He was told by his cardiology to go to the ED if worsening chest pain. He was placed in the progressive care unit and he was seen by cardiology who recommended left heart catheterization and PCI to his mid LAD with a LA NENA. Was then more listed in the cardiac stepdown unit and continued to do well. He was discharged home in a stable condition chest pain-free. Exam at the time of discharge; vital signs were stable. He was alert and oriented to time place and person. He did not appear to be any form of distress. S1 and S2 heard no murmur or gallop Lung exam was clear to auscultation with no adventitious sounds. Abdomen was soft nontender with normal bowel sounds. extremity exam did not reveal any edema, palpable pulses bilaterally. Neurologic exam was grossly intact. Discharge Diet: No Restrictions Discharge Activity: Return to Normal Activity Home Medications: Medications to take at Discharge amlodipine 5 mg tablet 5 mg PO QDAY 02/26/18 aspirin 81 mg tablet,delayed release 81 mg PO QDAY 02/26/18 benazepril 20 mg-hydrochlorothiazide 12.5 mg tablet 1 tab PO BID 02/26/18 clopidogrel 75 mg tablet 75 mg PO QDAY #30 tab 02/26/18 montelukast 10 mg tablet 10 mg PO DAILY@1200 02/26/18 Ketotifen Fumarate [Zaditor] 5 ml OP PRN PRN 03/02/18 Clopidogrel Bisulfate [Plavix] 75 mg PO DAILY 30 Days #30 tab 03/03/18 Metoprolol Tartrate [Lopressor (beta nora)] 25 mg PO BID #60 tab 03/03/18 Following Prescrptions Were Given to Patient: Clopidogrel Bisulfate [Plavix] 75 mg PO DAILY 30 Days #30 tab Metoprolol Tartrate [Lopressor (beta nora)] 25 mg PO BID #60 tab Primary Care Physician: Ruba Howell DO [Primary Care Provider] - Within 2 Weeks Please Follow Up With: Gustavo Leonardo MD - 2-3 weeks. Patient Instructions: ED Chest Pain NonCardiac Disposition: Home Patient Condition:: Good Medical Necessity - Tobacco Use Smoking Status: Never smoker Tobacco Use: Cigarettes Meaningful Use Info Meaningful Use Diagnoses (Choose all that apply): None applicable Code Visit OBSV E&M: 23766 Observation care discharge
--- NOTE | 2018-03-03 13:15 | CRPHASE1 ---
Patient Data/Charges Start Phase II:: FOLLOWING CARDIOLOGY VISIT Risk Factors/Lifestyle Smoking Status: Never smoker Hx Hypertension: Yes Hx Diabetes Mellitus Type 1: No Hx Diabetes Mellitus Type 2: No Hx Metabolic Disorders: Yes Hx Dyslipidemia: Yes Hx Obesity: Yes Height: 5 ft 9 in - BMI 37.1 Stress: Home/Family Risk Factor for Sedentary Lifestyle: Highest Risk Family History: Family History (Last Updated 02/26/18 @ 09:13 by Nancy Arellano) Father Heart disease Hypertension Laboratory Values: Cardiac Rehab Phase I Labs Triglycerides 109 mg/dL (-199) 03/02/18 03:42 Cholesterol 183 mg/dL (200) 03/02/18 03:42 LDL Cholesterol 127 mg/dL (0-130) 03/02/18 03:42 HDL Cholesterol 34 mg/dL (40-) L 03/02/18 03:42 Phase I Education Given On:: [place], Nutrition, Antiplatelet medication Issues Affecting Care:: None Knowledge of Condition:: Yes Learning Preferences: Verbal, Written - PT DISCHARGED. CALLED WITH CR INFORMATION, BOOKLET MAILED Hospital Course Presenting Symptoms:: UNSTABLE ANGINA Medical/Surgical History [place]:: No Angina:: Yes - UNSTABLE ANGINA Diabetes:: No Hypertension:: Yes Dyslipidemia:: Yes GERD:: Yes Discharge/Home/Social Eval Discharge Disposition: Home
--- NOTE | 2018-03-03 13:19 | CRPH1.INSTRU ---
General Education CAD and cardiac anatomy and function:: Patient communicates acknowledgment Explanation of diagnoses and procedures:: Patient communicates acknowledgment Sign/Symptoms of LA:: Patient communicates acknowledgment Antiplatelet therapy: Patient communicates acknowledgment Proper use of NTG-SL: Patient communicates acknowledgment Emergency procedures and activation of EMS: Patient communicates acknowledgment Compliance of all prescribed medications: Patient communicates acknowledgment - PT DISCHARGED. CALLED WITH CR INFORMATION, BOOKLET MAILED. Smoking Patient Nicotine/Smoking Risk Factors Are:: Never smoked Dyslipidemia Patient Dyslipidemia Risk Factors Are:: Total Cholesterol, Triglycerides, HDL, LDL Recommendations Include:: Lipid profile provided, Reviewed NCEP/ATP guidelines, Therapeutic Lifestyle Change dietary guidelines Dyslipidemia Response Code:: Patient communicates acknowledgment Overweight/Obesity Patient Overweight/Obesity Risk Factors Are:: Obesity - > or = 30 Recommendations Include:: Weight loss of 5-10%, Reduced calorie diet, Exercise 5-7 times/week Overweight/Obesity:: Patient communicates acknowledgment Hypertension Recommendations Include:: Maintain BP <130/85, DASH dietary guidelines, Decrease/maintain normal body weight, Moderation of ETOH Hypertension:: Patient communicates acknowledgment Diabetes Patient Diabetes Risk Factors Are:: No documented hx of diabetes Metabolic Syndrome Patient Metabolic Syndrome Risk Factors Are [3 of 5]:: Waist circumference > 35 [female] or 40 [male], Hypertension, Low HDL <40 [male] or < 50 [female] Recommendations Include:: Reinforce compliance to risk factor modifications, Encouraged follow-up with Primary Care Physician Metabolic Syndrome Response Code:: Patient communicates acknowledgment Sedentary Patient Sedentary Risk Factors Are:: Lack of regular exercise Recommendations Include:: Aerobic exercise 5-7 times/week for 20-30 minutes continuously, Benefits of regular exercise, Discussed home walking program, Monitored Outpatient Cardiac Rehab Sedentary Response Code:: Patient communicates acknowledgment Stress Recommendations Include:: Identification of stressors, and assessment of coping skills, Stress management techniques Stress Response Code:: Patient communicates acknowledgment
== END 2018-03-03 11:45 | disposition home or self-care (01) ==
LOC: ED 21:48 → PCU 23:28 → ICU 03-02 12:31
PROVIDERS: Hospitalist; Internal Medicine Cardiovascular Disease; Admitting Provider Internal Medicine; Emergency Provider Emergency Medicine; Family Provider Family Medicine; PCP Family Medicine; Visit Provider Internal Medicine
DX: I25.110 Atherosclerotic heart disease of native coronary artery with unstable angina pectoris (principal); E78.5 Hyperlipidemia, unspecified; I10 Essential (primary) hypertension; R94.39 Abnormal result of other cardiovascular function study; Z79.899 Other long term (current) drug therapy; Z79.82 Long term (current) use of aspirin; Z79.02 Long term (current) use of antithrombotics/antiplatelets
CPT/HCPCS: 36415; 71046; 80048; 80053; 80061; 81002; 84443; 84484; 85025; 85027; 85347; 85610; 85730; 87641; 92928; 93005; 93458; 96360; 96361; 96372; 99152; 99153; 99218; 99285; J7030; Q9967; A4216; C1725; C1769; C1874; C1887; C1894; C9600; G0378

== ENCOUNTER → 2018-03-19 11:31 | Outpatient (CLI) | payer OTHER, SELFPAY ==
--- NOTE | 2018-03-19 18:33 | STRESSREP ---
Stress Test Report Date: 03/19/2018 Procedure: Exercise tolerance test Indications: CAD; status post PCI; pre-cardiac rehabilitation Consent: Per the patient Procedure: The patient exercised on a [place] protocol for 7 minutes and 15 seconds completing Stage II and 1 minute and 15 seconds of Stage III achieving a peak heart rate of 141 bpm (84 % predicted maximal heart rate) with a peak blood pressure 180/80 mmHg and a peak MET capacity of approximately 8 mET's. The baseline ECG demonstrated sinus bradycardia. The peak exercise ECG demonstrated no obvious ECG changes. There was an isolated PVC during exercise and recovery.. The functional capacity was considered average. The patient had no complaint of chest discomfort during exercise or recovery. The examination was discontinued secondary to dyspnea and fatigue. Impression: 1. Technically adequate (percent predicted maximal heart rate greater than 85%) exercise tolerance test 2. Peak exercise ECG with no obvious ECG changes 3. Was an isolated PVC during exercise and recovery This note was generated with Bar[employer] software. It may contain incorrect words, spelling, and punctuation that were not noted in checking the note before signing.
--- NOTE | 2018-03-19 18:36 | STRESSREP_ITS ---
Stress Test Report Date: 03/19/2018 Procedure: Exercise tolerance test Indications: CAD; status post PCI; pre-cardiac rehabilitation Consent: Per the patient Procedure: The patient exercised on a [place] protocol for 7 minutes and 15 seconds completing Stage II and 1 minute and 15 seconds of Stage III achieving a peak heart rate of 141 bpm (84 % predicted maximal heart rate) with a peak blood pressure 180/80 mmHg and a peak MET capacity of approximately 8 mET's. The baseline ECG demonstrated sinus bradycardia. The peak exercise ECG demonstrated no obvious ECG changes. There was an isolated PVC during exercise and recovery.. The functional capacity was considered average. The patient had no complaint of chest discomfort during exercise or recovery. The examination was discontinued secondary to dyspnea and fatigue. Impression: 1. Technically adequate (percent predicted maximal heart rate greater than 85% ) exercise tolerance test 2. Peak exercise ECG with no obvious ECG changes 3. Was an isolated PVC during exercise and recovery This note was generated with [employer] software. It may contain incorrect words, spelling, and punctuation that were not noted in checking the note before signing.
== END ==
PROVIDERS: Family Provider Family Medicine; PCP Family Medicine; Visit Provider Internal Medicine Cardiovascular Disease
DX: I25.10 Atherosclerotic heart disease of native coronary artery without angina pectoris (principal); Z95.5 Presence of coronary angioplasty implant and graft
CPT/HCPCS: 93017

== ENCOUNTER → 2018-04-02 10:38 | Outpatient (CLI) | payer OTHER, SELFPAY ==
--- NOTE | 2018-04-02 10:47 | PCM.CR.ITP ---
General Information - General Information Admitting Diagnosis: PCI w/ coronary stent placement, abnormal cardiovascular stress test. - Education/Goals Barriers to Learning: None Individual Counseling: Initial Assessment: Abnormal Cholesterol Levels, High Blood Pressure, Overweight/Obesity, B. Waist Circumference >35/Females >40/Males, Low HDL <40/Males or <50/Females Cardiac Rehabilitation Goals: 1. Maintain the individual as the primary focus of care. 2. To improve the patient's quality of life. 3. Identification of cardiac risk factors and provide cardiac risk factor management. 4. Enhance the psychosocial status of the patient. 5. Reconditioning enough to allow the patient to resume customary activities. 6. Control symptoms of cardiac disease Scale for measuring improvement of personal goals: Enter appropriate number in Comments. 2 = Unchanged. 3 = Slightly Better. 4 = Moderate Improvement. 5 = Met my Goal Personal Goals: Initial Assessment: Improve energy level, Participate in home exercise program, Get back to work, or to resume activities faster, Improve muscle strength and endurance, Improve diet and eating habits (eat healthier), Control risk factors (learn risk factor modification) Exercise - Initial Assessment - Visit Date of Eval: 04/02/18 - established ITP; starting on April 06, 2018 - Stages of Change Stages of Change:: Action - Exercise Prescription Mode:: Treadmill, Rower, [place] Angina with exercise?: No - Hypertension Do any of the following apply?: Yes, Medication Resting Blood Pressure:: 110/62 - Intervention Home Exercise/Activity Goal:: Moderate Exercise 30 min/day x 5 days/wk - Education Goals:: Warm-up, RPE LIDA Scale, S/S, Safe Exercise, Self-Monitoring - Exercise Program Goals Exercise Program Goals: Aerobic Activity >30 min Nutrition - Initial Assessment - Program Goals Nutrition Program Goals: LDL <70. Total Cholesterol <200. HDL >45. Triglycerides <150. HgbA1C <7%. BMI <25 - Visit Date of Assessment:: 04/02/18 - Stages of Change Stages of Change:: Action - Lipids Total Cholesterol (mg/dL) Goal = less than 200 mg/dL: 183 HDL Cholesterol (mg/dL) Goal = less than 45 mg/dL: 34 LDL Cholesterol (mg/dL) Goal = less than 70 mg/dL: 127 Triglycerides (mg/dL) Goal = less than 150 mg/dL: 109 - Weight Management Height: 5 ft 8.89 in Weight:: 251 lb Weight Goal (kg):: 227 lb Body Fat %:: 37.1 Goal % Body Fat:: 34 - Intervention Referral to dietitian:: Yes Referral to Diabetic Clinic:: No Will attend diet classes:: Yes - Education Gave educational materials for:: Healthy eating Tobacco - Initial Assessment - Program Goals Tobacco Program Goals: Complete smoking cessation. Attend education classes. Improve Knowledge Test score - Stage of Change Stages of Change:: Action - Learning Barriers Learning Barriers: Ready to Learn - Tobacco Use Tobacco Use: Non-smoker Do you use smokeless tobacco?: No - Intervention Smoking Cessation Referral:: No Individual Education/Counseling:: No Education Schedule Given:: Yes - Education Gave educational material for:: Tobacco triggers, Coronary artery disease, Risk factors, Sexuality, Medical compliance, Cardiac A&P, Angina signs & symptoms Psychosocial - Initial Assess - Target Goals Target Goals: Assess presence or absence of depression. Using a valid screening tool, maximizes coping skills. Positive support system - Stages of Change Stages of Change:: Action - Psychosocial Test Tool Used:: HANDS Depression Questionnaire - Intervention PS - Interventions: Yes Attend Stress Management Classes, No Referral to Mental Health, No Referral to [facility] Case Management, No Referral to Physician, No Uses Stress Management Skills - Education Gave educational materials for:: Coping techniques, Signs & symptoms of depression, Stress management, Relaxation techniques - Patient/Program Goal Preventative Medication(s):: Aspirin, Clopidogrel, Beta nora, Statin/lipid - Assistive Devices Assistive Devices:: None Fall Risk Assessed:: Yes Patient Health Questionnaire Initial Assessment 1. Little interest or pleasure in doing things: More than half the days 2. Feeling down, depressed, or hopeless: Several days 3. Trouble falling or staying asleep, or sleeping too much: Not at all 4. Feeling tired or having little energy: Several days 5. Poor appetite or overeating: Not at all 6. Feeling bad about yourself -- or that you are a failure or have let yourself or your family down: Not at all 7. Trouble concentrating on things, such as reading the newspaper or watching television: Not at all 8. Moving or speaking so slowly that other people could have noticed. Or the opposite - being so fidgety or restless that you have been moving around a lot more than usual: Not at all 9. Thoughts that you would be better off , or of hurting yourself in some way: Not at all How difficult have these problems made it for you to do your work, take care of things at home, or get along with other people?: Not difficult at all Total Score: 4 FAROOQ-Q SV Test - Statements CAD is a disease of the arteries in the heart: False Examples of risk factors for heart disease: True Angina is chest pain or discomfort: True The benefits of resistance training include: True Eating more meat and dairy products: False Anti-platelet medications such as aspirin are important: True The only effective way to manage stress: False An exercise warm-up slowly increases heart rate: I Don't Know Prepared, processed foods usually have high sodium: True Depression is common after a heart attack: I Don't Know The statin medications lower cholesterol: True To control blood pressure, lower the amount of sodium: True If someone gets chest discomfort during walking: False Transfats are partially hydrogenated vegetable oils: True Sleep apnea that is not treated increases the risk: False To control cholesterol, one should become a vegetarian: False Someone knows if he/she is exercising at the right level: True Diabetes cannot be prevented with exercise & health eating: False Stress is a large risk for heart attack: True A diet that can help lower blood pressure is rich in: True - Total Score Total Correct Responses: 18 Self-Efficacy Initial Assessment We would like to know how confident you are in doing certain activities. Please select your confidence level for:: Select your confidence level for the following using the scale 1-10 where 1 is not at all confident and 10 is totally confident. Your score is the average of all 6 responses. Fatigue: How confident are you that you can keep the fatigue caused by your disease from interfering with the things you want to do? Select Number: 8 Physical Discomfort or Pain: How confident are you that you can keep the physical discomfort or pain of your disease from interfering with the things you want to do? Select Number: 6 Emotional Distress: How confident are you that you can keep the emotional distress caused by your disease from interfering with the things you want to do? Select Number: 7 Other Symptoms or Health Problems: How confident are you that you can keep other symptoms or health problems from interfering with the things you want to do? Select Number: 8 Different Tasks and Activities: How confident are you that you can do the different tasks and activities needed to manage your health condition so as to reduce your need to see a doctor? Select Number: 8 Medication: How confident are you that you can do things other than just taking medication to reduce how much your illness affects your everyday life? Select Number: 8 Total Score:: 7 Nutrition Survey - Nutrition Survey Instructions Scoring Instructions: Scoring is as follows: Yes = 1 points. No = 0 point. Patient score that is >/=12 is considered to be at potential nutritional risk and could benefit from a referral to a registered dietitian. - Nutrition Survey Initial Have you lost >10 lbs over the past 2 months without trying?: No Are you following a special diet at home for diabetes, low fat, or low salt?: Yes Are you interested in meeting with a dietitian for help understanding your diet?: Yes Do you eat less than 3 meals a day?: No Do you eat fatty meats (cano, sausage, ribs, etc), fried foods, desserts, large amounts of salad dressings, margarine, butter, or cheese most days?: No Do you have food allergies? [Enter types in comment field]: Yes - apples, berries, cherries, plums, bananas. Do you eat in restaurants more than 3 times a week?: No Do you season food with salt, seasoning salt, or garlic salt?: Yes Do you used canned, boxed, frozen meals, or soups, seasoning packets?: No - Referred for [facility], patient is interested is covered by his insurance. Total Score:: 4
--- NOTE | 2018-04-02 10:48 | PCM.CR.HP2 ---
CR - History & Physical - General Arrival date:: 04/02/18 Arrival time:: 10:48 Date of Referral:: 03/17/18 Date of CR Evaluation:: 04/02/18 Referring Physician: Dr. Gustavo Leonardo Primary Diagnosis: PCI w/coronary stent placement - History of Present Cardiac Event Onset Date: Enter Onset Date of cardiac illnesses in Comment field below PTCA or coronary stenting:: Yes - 03/02/2018 Type of Symptoms:: unstable angina, dyspnea, chest pain since mid November Interventions with present event:: Stress test failed, performed heart cath. Were there any complications?: none - Medications Home Medications: Ambulatory Orders Medication Instructions Recorded amlodipine 5 mg tablet 5 mg PO QDAY 02/26/18 aspirin 81 mg tablet,delayed 81 mg PO QDAY 02/26/18 release benazepril 20 1 tab PO BID 02/26/18 mg-hydrochlorothiazide 12.5 mg tablet montelukast 10 mg tablet 10 mg PO DAILY@1200 02/26/18 Ketotifen Fumarate [Zaditor] 5 ml OP PRN PRN 03/02/18 clopidogrel 75 mg tablet 75 mg PO DAILY 30 Days #90 tab 03/04/18 metoprolol tartrate 25 mg tablet 25 mg PO BID #180 tab 03/04/18 atorvastatin 80 mg tablet 80 mg PO QDAY #90 tab 03/23/18 - Allergies Allergies/Adverse Reactions: Allergies apples, cherries, banana, plums Allergy (Uncoded 04/02/18 10:59) Shortness of breath Seasonal Allergy (Uncoded 03/23/18 10:29) Other - Sleep Disorder Evaluation Hx of Sleep Apnea: No Do you snore loudly (louder than talking or can be heard through closed doors)?: Yes Do you often feel tired/ fatigued/ sleepy during daytime?: Yes Has anyone observed you stop breathing during sleep?: Yes - decreased oxygen saturations during hospitalization History of Hypertension (for STOP score): Yes STOP Results: Positive Advanced Directives - Advanced Directives Power of Stave Hewer: No Living Will: No Advance Directives Information Provided: Yes Advance Directives on File: No DNR Order?:: No - MOLST See MOLST form: No Past Medical History - Past Medical Illness Medical History: Past Medical History (Last Reviewed 03/23/18 @ 10:32 by Dora Manzano) S/P coronary artery stent placement (Chronic) Onset Date: ~03/02/18 Z95.5 PTCA/LA NENA of Mid LAD 03/02/18 Atherosclerotic heart disease of [place] coronary artery without angina pectoris (Chronic) I25.10 PTCA/LA NENA of Mid LAD 03/02/18 Dyspnea (Chronic) R06.00 Hyperlipidemia (Chronic) E78.5 Hypertension (Chronic) I10 Chest pain (Chronic) R07.9 Obesity (BMI 30-39.9) E66.9 Allergic rhinitis J30.9 GERD (gastroesophageal reflux disease) K21.9 Psoriasis L40.9 - Past Surgical History Surgical History: Past Surgical History (Last Reviewed 03/23/18 @ 10:32 by Dora Manzano) History of excision of epidermal inclusion cyst Z98.890, Z87.2 Postsurgical percutaneous transluminal coronary angioplasty (PTCA) status Onset Date: ~03/02/18 Z98.61 PTCA/LA NENA of Mid LAD 03/02/18 Surgical History: no surgical history - Family History Summary Family History: Family History (Last Reviewed 03/23/18 @ 10:32 by Dora Manzano) Father Heart disease Hypertension Social History - Smoking History Smoking Status: Never smoker Hx Tobacco Use: No Hx Smoking Exposure: No - Alcohol Use Alcohol Usage: Yes - not for last 3 weeks, but a few after work or on weekends - Substance Abuse Hx Substance Use: No - Occupation Occupation (List type of work in comments):: Employed Hours worked per day:: 8 Returned to work on:: 03/23/18 - Hobbies, Recreation, Social Activities Hobbies: Other - hunting, fishing, yard work, gardening, Recreational Activities: I am able to engage in a few activities - like to get back ot more srenuous exercise and activity Social Environment - Status Marital Status: - Current Living Arrangements Living Environment:: Alone - Children How many children do you have?: 2 Do any of your children live nearby?: Yes - area 5-7 miles - Safety Do you feel safe in your surroundings?: Yes - Assistance Do you need any assistance at home?: none Review of Systems - Review of Systems Hints: Right click = Denies ([place]ash). Left click = Reports ([place]) Review of Present Symptoms: Reports: Shortness of Breath with Exertion - slight level, depends on level of activity. FOr example previously felt shot of breath climbing stairs and today does not have that today., Operative Discomfort, Fatigue, Appetite - Normal, Appetite - Special Diet - reducing sodium intake, more green vegetables, nuts to snack on maybe a handful., Sleep - Normal - 6-7 hours of sleep per night average.. Denies: Shortness of Breath at Rest, Angina, Dizziness/Lightheadedness, Sexual Changes - Pain Is Patient Pain Free?: Yes Pain Location: none Pain Level: 0/10 Risk Factor Assessment - Chief Complaint Chief Complaint: Patient is a 52 year old male patient of Dr. Leonardo who presents to cardiac rehab today following a recent PCI and stent intervention procedure 03/02/[address] [facility]. - Vital Signs Temperature: 98.7 F Respiratory Rate: 14 Pulse Ox: 96 - room air Blood Pressure: 110/62 Nailbeds:: pink; normal refill - Pulse Pulse Rate: 57 Pulse Rhythm: Regular - Hypertension How long have you been treated?: 2009 Blood Pressure Sitting - Right Arm: 108/56 Blood Pressure Sitting - Left Arm: 110/62 - Stress Stress: Work-related - Blood Cholesterol/Lipids Total Cholesterol (mg/dL) Goal = less than 200 mg/dL: 183 HDL Cholesterol (mg/dL) Goal = less than 40 mg/dL: 34 LDL Cholesterol (mg/dL) Goal = less than 70 mg/dL: 127 Triglycerides (mg/dL) Goal = less than 150 mg/dL: 109 - Obesity Height: 5 ft 8.89 in Weight:: 251 lb Weight in Pounds: 251.0 lbs Weight Source: Standing Scale Body Mass Index (BMI): 37.1 Desired Body Weight: 164 Realistic Weight Goal (Loss of 1-2 lbs/week): 227 Nutritional Referral for Obesity: Yes - Patient could benefit from a structured weight loss program. - Risk Stratification Risk Guidelines: Lowest Risk: Risk Factor for Dyslipidemia, Risk Factor for Diabetes, Risk Factor for Hypertension, Risk Factor for Sedentary Lifestyle, Risk Factor for Depression, Highest Risk: Risk Factor for Obesity - For Smoking Smoking Risk Guidelines: Smoking Low Risk: None or quit greater than 6 months ago. Smoking Moderate Risk: Smoker or quit 6 months or less ago. Smoking High Risk: Smoker - For Dyslipidemia Dyslipidemia Risk Guidelines: Low Risk: Moderate Risk: High Risk: 15-25% fat 25.1-29% fat >/= 30% fat. <7% sat fat 7-9% sat fat >9% sat fat. <150 mg chol 150-299 mg chol >/= 300 mg chol. LDL <100 LDL 100-129 LDL >/= 130. Chol/HDL ratio <5.0 Chol/HDL ratio 5.0-6.0 Chol/HDL ratio >6.0. Triglycerides <100 Triglycerides 100-149 Triglycerides >/= 150 - For Diabetes Mellitus Diabetes Risk Guidelines: Diabetes Low Risk: HgA1c <6.5% and/or FBG <120. Diabetes Moderate Risk: HgA1c 6.6-7.9% and/or FBG 120-180. Diabetes High Risk: HgA1c >/= 8% and/or FBG >180 - For Obesity/Overweight Obesity/Overweight Risk Guidelines: Obesity Low Risk: BMI <25.0. Obesity Moderate Risk: BMI 25-29.9. Obesity High Risk: BMI >/= 30.0 - For Hypertension Hypertension Risk Guidelines: Hypertension Low Risk: Systolic <120 and Diastolic <80. Hypertension Moderate Risk: Systolic 120-139 and Diastolic 80-89. Hypertension High Risk: Systolic >/= 140 and Diastolic >/= 90 - For Sedentary Lifestyle Sedentary Lifestyle Risk Guidelines: Sedentary Lifestyle Low Risk: >/= 1,500 kcal/week. Sedentary Lifestyle Moderate Risk: 700-1,499 kcal/week. Sedentary Lifestyle High Risk: < 700 kcal/week - For Depression Depression Risk Guidelines: Depression Low Risk: Not clinically depressed. Depression Moderate Risk: Mildly depressed. Depression High Risk: Clinically depressed - Family History Family History: Family History (Last Reviewed 03/23/18 @ 10:32 by Dora Manzano) Father Heart disease Hypertension Motivation - Motivation to Participate On a scale of 1 to 10, how prepared are you to commit to attending program?: 10 - ready to get after it! What do you see as barriers to successfully being able to complete the program?: possible time schedule What do you see as the benefits of succesfully completing the program? In other words, what do you hope to get out of participating in the program?: getting back to feeling younger, getting back to normal physical activity. Are there issues you are dealing with that will interfere with completing the program?: weight Do you have a spouse or signficant other, family or friends who will help support you to complete the program?: yes
--- NOTE | 2018-04-02 10:58 | CR.HP_ITS ---
CR - History & Physical - General Arrival date:: 04/02/18 Arrival time:: 10:48 Date of Referral:: 03/17/18 Date of CR Evaluation:: 04/02/18 Referring Physician: Dr. Gustavo Leonardo Primary Diagnosis: PCI w/coronary stent placement - History of Present Cardiac Event Onset Date: Enter Onset Date of cardiac illnesses in Comment field below PTCA or coronary stenting:: Yes - 03/02/2018 Type of Symptoms:: unstable angina, dyspnea, chest pain since mid November Interventions with present event:: Stress test failed, performed heart cath. Were there any complications?: none - Medications Home Medications: Ambulatory Orders Medication Instructions Recorded amlodipine 5 mg tablet 5 mg PO QDAY 02/26/18 aspirin 81 mg tablet,delayed 81 mg PO QDAY 02/26/18 release benazepril 20 1 tab PO BID 02/26/18 mg-hydrochlorothiazide 12.5 mg tablet montelukast 10 mg tablet 10 mg PO DAILY@1200 02/26/18 Ketotifen Fumarate [Zaditor] 5 ml OP PRN PRN 03/02/18 clopidogrel 75 mg tablet 75 mg PO DAILY 30 Days #90 tab 03/04/18 metoprolol tartrate 25 mg tablet 25 mg PO BID #180 tab 03/04/18 atorvastatin 80 mg tablet 80 mg PO QDAY #90 tab 03/23/18 - Allergies Allergies/Adverse Reactions: Allergies apples, cherries, banana, plums Allergy (Uncoded 04/02/18 10:59) Shortness of breath Seasonal Allergy (Uncoded 03/23/18 10:29) Other - Sleep Disorder Evaluation Hx of Sleep Apnea: No Do you snore loudly (louder than talking or can be heard through closed doors)? : Yes Do you often feel tired/ fatigued/ sleepy during daytime?: Yes Has anyone observed you stop breathing during sleep?: Yes - decreased oxygen saturations during hospitalization History of Hypertension (for STOP score): Yes STOP Results: Positive Advanced Directives - Advanced Directives Power of Mail Processing Associate: No Living Will: No Advance Directives Information Provided: Yes Advance Directives on File: No DNR Order?:: No - MOLST See MOLST form: No Past Medical History - Past Medical Illness Medical History: Past Medical History (Last Reviewed 03/23/18 @ 10:32 by Dora Manzano) S/P coronary artery stent placement (Chronic) Onset Date: ~03/02/18 Z95.5 PTCA/LA [facility] of [place] 03/02/18 Atherosclerotic heart disease of [place] coronary artery without angina pectoris (Chronic) I25.10 PTCA/LA [facility] of [place] 03/02/18 Dyspnea (Chronic) R06.00 Hyperlipidemia (Chronic) E78.5 Hypertension (Chronic) I10 Chest pain (Chronic) R07.9 Obesity (BMI 30-39.9) E66.9 Allergic rhinitis J30.9 GERD (gastroesophageal reflux disease) K21.9 Psoriasis L40.9 - Past Surgical History Surgical History: Past Surgical History (Last Reviewed 03/23/18 @ 10:32 by Dora Manzano) History of excision of epidermal inclusion cyst Z98.890, Z87.2 Postsurgical percutaneous transluminal coronary angioplasty (PTCA) status Onset Date: ~03/02/18 Z98.61 PTCA/LA [facility] of [place] 03/02/18 Surgical History: no surgical history - Family History Summary Family History: Family History (Last Reviewed 03/23/18 @ 10:32 by Dora Manzano) Father Heart disease Hypertension Social History - Smoking History Smoking Status: Never smoker Hx Tobacco Use: No Hx Smoking Exposure: No - Alcohol Use Alcohol Usage: Yes - not for last 3 weeks, but a few after work or on weekends - Substance Abuse Hx Substance Use: No - Occupation Occupation (List type of work in comments):: Employed Hours worked per day:: 8 Returned to work on:: 03/23/18 - Hobbies, Recreation, Social Activities Hobbies: Other - hunting, fishing, yard work, gardening, Recreational Activities: I am able to engage in a few activities - like to get back ot more srenuous exercise and activity Social Environment - Status Marital Status: - Current Living Arrangements Living Environment:: Alone - Children How many children do you have?: 2 Do any of your children live nearby?: Yes - area 5-7 miles - Safety Do you feel safe in your surroundings?: Yes - Assistance Do you need any assistance at home?: none Review of Systems - Review of Systems Hints: Right click = Denies (Slash). Left click = Reports ([place]) Review of Present Symptoms: Reports: Shortness of Breath with Exertion - slight level, depends on level of activity. FOr example previously felt shot of breath climbing stairs and today does not have that today., Operative Discomfort, Fatigue, Appetite - Normal, Appetite - Special Diet - reducing sodium intake, more green vegetables, nuts to snack on maybe a handful., Sleep - Normal - 6-7 hours of sleep per night average.. Denies: Shortness of Breath at Rest, Angina , Dizziness/Lightheadedness, Sexual Changes - Pain Is Patient Pain Free?: Yes Pain Location: none Pain Level: 0/10 Risk Factor Assessment - Chief Complaint Chief Complaint: Patient is a 52 year old male patient of Dr. Leonardo who presents to cardiac rehab today following a recent PCI and stent intervention procedure 03/02/18 here at [facility]. - Vital Signs Temperature: 98.7 F Respiratory Rate: 14 Pulse Ox: 96 - room air Blood Pressure: 110/62 Nailbeds:: pink; normal refill - Pulse Pulse Rate: 57 Pulse Rhythm: Regular - Hypertension How long have you been treated?: 2009 Blood Pressure Sitting - Right Arm: 108/56 Blood Pressure Sitting - Left Arm: 110/62 - Stress Stress: Work-related - Blood Cholesterol/Lipids Total Cholesterol (mg/dL) Goal = less than 200 mg/dL: 183 HDL Cholesterol (mg/dL) Goal = less than 40 mg/dL: 34 LDL Cholesterol (mg/dL) Goal = less than 70 mg/dL: 127 Triglycerides (mg/dL) Goal = less than 150 mg/dL: 109 - Obesity Height: 5 ft 8.89 in Weight:: 251 lb Weight in Pounds: 251.0 lbs Weight Source: Standing Scale Body Mass Index (BMI): 37.1 Desired Body Weight: 164 Realistic Weight Goal (Loss of 1-2 lbs/week): 227 Nutritional Referral for Obesity: Yes - Patient could benefit from a structured weight loss program. - Risk Stratification Risk Guidelines: Lowest Risk: Risk Factor for Dyslipidemia, Risk Factor for Diabetes, Risk Factor for Hypertension, Risk Factor for Sedentary Lifestyle, Risk Factor for Depression, Highest Risk: Risk Factor for Obesity - For Smoking Smoking Risk Guidelines: Smoking Low Risk: None or quit greater than 6 months ago. Smoking Moderate Risk: Smoker or quit 6 months or less ago. Smoking High Risk: Smoker - For Dyslipidemia Dyslipidemia Risk Guidelines: Low Risk: Moderate Risk: High Risk: 15-25% fat 25.1-29% fat >/= 30% fat. <7% sat fat 7-9% sat fat >9% sat fat. <150 mg chol 150-299 mg chol >/= 300 mg chol. LDL <100 LDL 100-129 LDL >/= 130. Chol/HDL ratio <5.0 Chol/HDL ratio 5.0-6.0 Chol/HDL ratio >6.0. Triglycerides <100 Triglycerides 100-149 Triglycerides >/= 150 - For Diabetes Mellitus Diabetes Risk Guidelines: Diabetes Low Risk: HgA1c <6.5% and/or FBG <120. Diabetes Moderate Risk: HgA1c 6.6-7.9% and/or FBG 120-180. Diabetes High Risk: HgA1c >/= 8% and/or FBG >180 - For Obesity/Overweight Obesity/Overweight Risk Guidelines: Obesity Low Risk: BMI <25.0. Obesity Moderate Risk: BMI 25-29.9. Obesity High Risk: BMI >/= 30.0 - For Hypertension Hypertension Risk Guidelines: Hypertension Low Risk: Systolic <120 and Diastolic <80. Hypertension Moderate Risk: Systolic 120-139 and Diastolic 80-89. Hypertension High Risk: Systolic >/= 140 and Diastolic >/= 90 - For Sedentary Lifestyle Sedentary Lifestyle Risk Guidelines: Sedentary Lifestyle Low Risk: >/= 1 ,500 kcal/week. Sedentary Lifestyle Moderate Risk: 700-1,499 kcal/week. Sedentary Lifestyle High Risk: < 700 kcal/week - For Depression Depression Risk Guidelines: Depression Low Risk: Not clinically depressed. Depression Moderate Risk: Mildly depressed. Depression High Risk: Clinically depressed - Family History Family History: Family History (Last Reviewed 03/23/18 @ 10:32 by Dora Manzano) Father Heart disease Hypertension Motivation - Motivation to Participate On a scale of 1 to 10, how prepared are you to commit to attending program?: 10 - ready to get after it! What do you see as barriers to successfully being able to complete the program? : possible time schedule What do you see as the benefits of succesfully completing the program? In other words, what do you hope to get out of participating in the program?: getting back to feeling younger, getting back to normal physical activity. Are there issues you are dealing with that will interfere with completing the program?: weight Do you have a spouse or signficant other, family or friends who will help support you to complete the program?: yes
[2018-04-02 11:10] VITALS: BP 108/56; BP 110/62; PULSE 57; RESP 14; TEMP 37.1; O2SAT 96; BMI 37.1
[2018-04-02 11:52] VITALS: BP 110/62
== END ==
PROVIDERS: Family Provider Family Medicine; PCP Family Medicine; Visit Provider Internal Medicine Cardiovascular Disease
DX: I25.10 Atherosclerotic heart disease of native coronary artery without angina pectoris (principal); Z95.5 Presence of coronary angioplasty implant and graft; I10 Essential (primary) hypertension; E78.5 Hyperlipidemia, unspecified; E66.9 Obesity, unspecified

== ENCOUNTER 2018-05-04 10:15 | Outpatient (RCR) | payer OTHER, SELFPAY ==
--- NOTE | 2018-04-29 11:53 | PCM.CR.ITP ---
General Information - General Information Admitting Diagnosis: PCI with coronary stent placement - Education/Goals Barriers to Learning: None Cardiac Rehabilitation Goals: 1. Maintain the individual as the primary focus of care. 2. To improve the patient's quality of life. 3. Identification of cardiac risk factors and provide cardiac risk factor management. 4. Enhance the psychosocial status of the patient. 5. Reconditioning enough to allow the patient to resume customary activities. 6. Control symptoms of cardiac disease Scale for measuring improvement of personal goals: Enter appropriate number in Comments. 2 = Unchanged. 3 = Slightly Better. 4 = Moderate Improvement. 5 = Met my Goal Personal Goals: 30-day Re-assessment: Improve energy level, Participate in home exercise program, Get back to work, or to resume activities faster, Improve muscle strength and endurance, Improve diet and eating habits (eat healthier), Control risk factors (learn risk factor modification) Exercise - 30-day Assessment - Visit Date of Eval: 04/29/18 Session #:: 9 - Stages of Change Stages of Change:: Action - Exercise Prescription Mode:: Treadmill, Rower, Airdyne Frequency (x/week): 3 Duration:: 30 METs - Progression: 0.5-1 MET as tolerated: 5.5 Target Heart Rate:: 116-126 max hr 120 - Hypertension Resting Blood Pressure:: 110/58 Peak Exercise Blood Pressure:: 180/78 - Intervention Home Exercise/Activity Goal:: Sitting Time <3 hrs/day - Education Goals:: Warm-up, RPE LIDA Scale, S/S, Safe Exercise, Self-Monitoring - Exercise Program Goals Exercise Program Goals: Aerobic Activity >30 min, B/P <130/80 Nutrition - 30-Day Assessment - Program Goals Nutrition Program Goals: LDL <70. Total Cholesterol <200. HDL >45. Triglycerides <150. HgbA1C <7%. BMI <25 - Visit Date of Eval: 04/29/18 - Stages of Change Stages of Change:: Action - Lipids Has the patient seen the dietitian?: No - Weight Management Weight:: 114.305 kg - Intervention Referral to dietitian:: No Referral to Diabetic Clinic:: No Will attend diet classes:: Yes - Education Attended class for:: Signs & symptoms of hypoglycemia, Signs & symptoms of hyperglycemia, Relate diabetes to coronary artery disease, Healthy eating Tobacco - Initial Assessment - Program Goals Tobacco Program Goals: Complete smoking cessation. Attend education classes. Improve Knowledge Test score - Learning Barriers Learning Barriers: Ready to Learn Tobacco - 30-Day Assessment - Program Goals Tobacco Program Goals: Complete smoking cessation. Attend education classes. Improve Knowledge Test score - Stage of Change Stages of Change:: Action - Learning Barriers Learning Barriers: Participates in education - Family Support Do you have family support?: Yes - Tobacco Use Tobacco Use: Non-smoker Do you use smokeless tobacco?: No - Intervention Smoking Cessation Referral:: No Individual Education/Counseling:: No Education Schedule Given:: Yes - Education Attended class for:: Tobacco triggers, Coronary artery disease, Risk factors, Sexuality, Medical compliance, Cardiac A&P, Angina signs & symptoms Psychosocial - Initial Assess - Target Goals Target Goals: Assess presence or absence of depression. Using a valid screening tool, maximizes coping skills. Positive support system - Psychosocial Test Tool Used:: HANDS Depression Questionnaire - Assistive Devices Fall Risk Assessed:: Yes Psychosocial - 30-Day Assess - Target Goals Target Goals: Assess presence or absence of depression. Using a valid screening tool, maximizes coping skills. Positive support system - Stages of Change Stages of Change:: Action - Psychosocial Test Tool Used:: HANDS Depression Questionnaire - Intervention PS - Interventions: Yes Attend Stress Management Classes, Yes Uses Stress Management Skills, No Referral to Mental Health, No Referral to [facility] Case Management, No Referral to Physician - Education Attended classes for:: Coping techniques, Signs & symptoms of depression, Stress management, Relaxation techniques - Assistive Devices Assistive Devices:: None Fall Risk Assessed:: Yes Psychosocial - Final Assessmen - Target Goals Target Goals: Assess presence or absence of depression. Using a valid screening tool, maximizes coping skills. Positive support system - Psychosocial Test Tool Used:: HANDS Depression Questionnaire - Intervention PS - Interventions: Yes Attend Stress Management Classes, Yes Uses Stress Management Skills, No Referral to Mental Health, No Referral to [facility] Case Management, No Referral to Physician Patient Health Questionnaire 30-Day Re-eval Assessment 1. Little interest or pleasure in doing things: More than half the days 2. Feeling down, depressed, or hopeless: Several days 3. Trouble falling or staying asleep, or sleeping too much: Not at all 4. Feeling tired or having little energy: Several days 5. Poor appetite or overeating: Not at all 6. Feeling bad about yourself -- or that you are a failure or have let yourself or your family down: Not at all 7. Trouble concentrating on things, such as reading the newspaper or watching television: Not at all 8. Moving or speaking so slowly that other people could have noticed. Or the opposite - being so fidgety or restless that you have been moving around a lot more than usual: Not at all 9. Thoughts that you would be better off , or of hurting yourself in some way: Not at all How difficult have these problems made it for you to do your work, take care of things at home, or get along with other people?: Not difficult at all Total Score: 4 Self-Efficacy 30-Day Re-eval Assessment We would like to know how confident you are in doing certain activities. Please select your confidence level for:: Select your confidence level for the following using the scale 1-10 where 1 is not at all confident and 10 is totally confident. Your score is the average of all 6 responses. Fatigue: How confident are you that you can keep the fatigue caused by your disease from interfering with the things you want to do? Select Number: 8 Physical Discomfort or Pain: How confident are you that you can keep the physical discomfort or pain of your disease from interfering with the things you want to do? Select Number: 6 Emotional Distress: How confident are you that you can keep the emotional distress caused by your disease from interfering with the things you want to do? Select Number: 7 Other Symptoms or Health Problems: How confident are you that you can keep other symptoms or health problems from interfering with the things you want to do? Select Number: 8 Different Tasks and Activities: How confident are you that you can do the different tasks and activities needed to manage your health condition so as to reduce your need to see a doctor? Select Number: 8 Medication: How confident are you that you can do things other than just taking medication to reduce how much your illness affects your everyday life? Select Number: 8 Total Score:: 7
[2018-04-29 12:00] VITALS: BP 110/58; BP 180/78
== END 2018-05-05 23:59 ==
LOC: CR 10:15
PROVIDERS: Family Provider Family Medicine; PCP Family Medicine; Visit Provider Internal Medicine Cardiovascular Disease
DX: I25.10 Atherosclerotic heart disease of native coronary artery without angina pectoris (principal); Z95.5 Presence of coronary angioplasty implant and graft
CPT/HCPCS: 93798

== ENCOUNTER 2018-06-03 08:12 | Outpatient (RCR) | payer OTHER, SELFPAY | END 2018-06-05 23:59 | LOC: NS 08:12 | PROVIDERS: Family Provider Family Medicine; PCP Family Medicine; Visit Provider Internal Medicine Cardiovascular Disease | DX: E66.9 Obesity, unspecified (principal); Z68.37 Body mass index [BMI] 37.0-37.9, adult; I10 Essential (primary) hypertension; E78.5 Hyperlipidemia, unspecified; Z95.1 Presence of aortocoronary bypass graft | CPT/HCPCS: 97802 ==

== ENCOUNTER 2018-06-05 10:15 | Outpatient (RCR) | payer OTHER, SELFPAY ==
[2018-05-06 00:15] VITALS: BP 110/58; BP 180/78
--- NOTE | 2018-05-29 11:03 | PCM.CR.ITP ---
General Information - General Information Admitting Diagnosis: PCI with coronary stenting - Education/Goals Barriers to Learning: None Cardiac Rehabilitation Goals: 1. Maintain the individual as the primary focus of care. 2. To improve the patient's quality of life. 3. Identification of cardiac risk factors and provide cardiac risk factor management. 4. Enhance the psychosocial status of the patient. 5. Reconditioning enough to allow the patient to resume customary activities. 6. Control symptoms of cardiac disease Scale for measuring improvement of personal goals: Enter appropriate number in Comments. 2 = Unchanged. 3 = Slightly Better. 4 = Moderate Improvement. 5 = Met my Goal Exercise - 60-Day Assessment - Visit Date of Eval: 05/29/18 Session #:: 22 - Stages of Change Stages of Change:: Action - Exercise Prescription Mode:: Treadmill, Rower, Airdyne Frequency (x/week): 3 Duration:: 30 METs: 8.3 Target Heart Rate:: 133-141 Max HR 124 - Hypertension Resting Blood Pressure:: 124/64 Peak Exercise Blood Pressure:: 180/90 Medication Changes:: No - Intervention Home Exercise/Activity Goal:: Sitting Time <3 hrs/day - Education Goals:: Warm-up, RPE LIDA Scale, S/S, Safe Exercise, Self-Monitoring - Exercise Program Goals Exercise Program Goals: Aerobic Activity >30 min, B/P <130/80 Nutrition - 60-Day Assessment - Program Goals Nutrition Program Goals: LDL <70. Total Cholesterol <200. HDL >45. Triglycerides <150. HgbA1C <7%. BMI <25 - Visit Date of Eval: 05/29/18 - Stages of Change Stages of Change:: Action - Lipids Has the patient seen the dietitian?: No - Diabetes Diabetes:: No - Intervention Referral to dietitian:: No Referral to Diabetic Clinic:: No Will attend diet classes:: Yes - Education Attended class for:: Signs & symptoms of hypoglycemia, Signs & symptoms of hyperglycemia, Healthy eating Tobacco - Initial Assessment - Program Goals Tobacco Program Goals: Complete smoking cessation. Attend education classes. Improve Knowledge Test score - Learning Barriers Learning Barriers: Ready to Learn Tobacco - 60-Day Assessment - Program Goals Tobacco Program Goals: Complete smoking cessation. Attend education classes. Improve Knowledge Test score - Stage of Change Stages of Change:: Action - Learning Barriers Learning Barriers: Participates in education - Family Support Do you have family support?: Yes - Tobacco Use Tobacco Use: Non-smoker Do you use smokeless tobacco?: No - Intervention Smoking Cessation Referral:: No Individual Education/Counseling:: No Education Schedule Given:: Yes - Education Attended class for:: Tobacco triggers, Coronary artery disease, Risk factors, Sexuality, Medical compliance, Cardiac A&P, Angina signs & symptoms Psychosocial - 60-Day Assess - Target Goals Target Goals: Assess presence or absence of depression. Using a valid screening tool, maximizes coping skills. Positive support system - Stages of Change Stages of Change:: Action - Psychosocial Test Tool Used:: HANDS Depression Questionnaire - Intervention PS - Interventions: Yes Attend Stress Management Classes, Yes Uses Stress Management Skills, No Referral to Mental Health, No Referral to [facility] Case Management, No Referral to Physician - Education Attended classes for:: Coping techniques, Signs & symptoms of depression, Stress management, Relaxation techniques - Assistive Devices Assistive Devices:: None Fall Risk Assessed:: Yes Patient Health Questionnaire 60-Day Re-eval Assessment 1. Little interest or pleasure in doing things: More than half the days 2. Feeling down, depressed, or hopeless: Several days 3. Trouble falling or staying asleep, or sleeping too much: Not at all 4. Feeling tired or having little energy: Several days 5. Poor appetite or overeating: Not at all 6. Feeling bad about yourself -- or that you are a failure or have let yourself or your family down: Not at all 7. Trouble concentrating on things, such as reading the newspaper or watching television: Not at all 8. Moving or speaking so slowly that other people could have noticed. Or the opposite - being so fidgety or restless that you have been moving around a lot more than usual: Not at all 9. Thoughts that you would be better off , or of hurting yourself in some way: Not at all How difficult have these problems made it for you to do your work, take care of things at home, or get along with other people?: Not difficult at all Total Score: 4 Self-Efficacy 60-Day Re-eval Assessment We would like to know how confident you are in doing certain activities. Please select your confidence level for:: Select your confidence level for the following using the scale 1-10 where 1 is not at all confident and 10 is totally confident. Your score is the average of all 6 responses. Fatigue: How confident are you that you can keep the fatigue caused by your disease from interfering with the things you want to do? Select Number: 8 Physical Discomfort or Pain: How confident are you that you can keep the physical discomfort or pain of your disease from interfering with the things you want to do? Select Number: 6 Emotional Distress: How confident are you that you can keep the emotional distress caused by your disease from interfering with the things you want to do? Select Number: 7 Other Symptoms or Health Problems: How confident are you that you can keep other symptoms or health problems from interfering with the things you want to do? Select Number: 8 Different Tasks and Activities: How confident are you that you can do the different tasks and activities needed to manage your health condition so as to reduce your need to see a doctor? Select Number: 8 Medication: How confident are you that you can do things other than just taking medication to reduce how much your illness affects your everyday life? Select Number: 8 Total Score:: 7
[2018-05-29 11:15] VITALS: BP 124/64; BP 180/90
== END 2018-06-05 23:59 ==
LOC: CR 10:15
PROVIDERS: Family Provider Family Medicine; PCP Family Medicine; Visit Provider Internal Medicine Cardiovascular Disease
DX: I25.10 Atherosclerotic heart disease of native coronary artery without angina pectoris (principal); Z95.5 Presence of coronary angioplasty implant and graft
CPT/HCPCS: 93798

== ENCOUNTER 2018-06-26 09:29 | Outpatient (RCR) | payer OTHER, SELFPAY | END 2018-07-05 23:59 | LOC: NS 09:29 | PROVIDERS: Family Provider Family Medicine; PCP Family Medicine; Visit Provider Internal Medicine Cardiovascular Disease | DX: E66.9 Obesity, unspecified (principal); Z68.37 Body mass index [BMI] 37.0-37.9, adult; Z95.5 Presence of coronary angioplasty implant and graft; I10 Essential (primary) hypertension; E78.5 Hyperlipidemia, unspecified; Z71.3 Dietary counseling and surveillance | CPT/HCPCS: 97803 ==

== ENCOUNTER 2018-07-01 10:15 | Outpatient (RCR) | payer OTHER, SELFPAY ==
[2018-06-06 00:26] VITALS: BP 124/64; BP 180/90
--- NOTE | 2018-07-01 12:56 | PCM.CR.ITP ---
General Information - General Information Admitting Diagnosis: PCI w/ coronary stent placement - Education/Goals Cardiac Rehabilitation Goals: 1. Maintain the individual as the primary focus of care. 2. To improve the patient's quality of life. 3. Identification of cardiac risk factors and provide cardiac risk factor management. 4. Enhance the psychosocial status of the patient. 5. Reconditioning enough to allow the patient to resume customary activities. 6. Control symptoms of cardiac disease Scale for measuring improvement of personal goals: Enter appropriate number in Comments. 2 = Unchanged. 3 = Slightly Better. 4 = Moderate Improvement. 5 = Met my Goal Exercise - Final/Discharge - Visit Date of Eval: 07/01/18 Session #:: 36 - Stages of Change Stages of Change:: Action - Exercise Prescription Mode:: Treadmill, Rower, Airdyne Frequency (x/week): 3 Duration:: 30 METs: 9.3 Target Heart Rate:: 133-141 Max HR 121 - Hypertension Resting Blood Pressure:: 122/64 Peak Exercise Blood Pressure:: 180/70 - Intervention Home Exercise/Activity Goal:: Sitting Time <3 hrs/day - Education Goal Progress: Goal Met - Exercise Program Goals Exercise Program Goals: Aerobic Activity >30 min, B/P <130/80 Nutrition - Final Assessment - Program Goals Nutrition Program Goals: LDL <70. Total Cholesterol <200. HDL >45. Triglycerides <150. HgbA1C <7%. BMI <25 - Visit Date of Eval: 07/01/18 - Diabetes Diabetes:: No - Weight Management Weight:: 113.852 kg Total Score:: 4 - Intervention Referral to dietitian:: No Referral to Diabetic Clinic:: No Will attend diet classes:: Yes - Education Education Goal Reached?: Yes Tobacco - Initial Assessment - Program Goals Tobacco Program Goals: Complete smoking cessation. Attend education classes. Improve Knowledge Test score - Learning Barriers Learning Barriers: Ready to Learn Tobacco - Final Assessment - Program Goals Tobacco Program Goals: Complete smoking cessation. Attend education classes. Improve Knowledge Test score - Stage of Change Stages of Change:: Action - Learning Barriers Cardiac Knowledge Test Score:: 15 - Family Support Do you have family support?: Yes - Tobacco Use Tobacco Use: Non-smoker Do you use smokeless tobacco?: No - Intervention Smoking Cessation Referral:: No Individual Education/Counseling:: No Education Schedule Given:: Yes - Education Education Goal Reached?: Yes Psychosocial - Initial Assess - Target Goals Target Goals: Assess presence or absence of depression. Using a valid screening tool, maximizes coping skills. Positive support system - Psychosocial Test Tool Used:: HANDS Depression Questionnaire - Assistive Devices Fall Risk Assessed:: Yes Psychosocial - 90-Day Assess - Target Goals Target Goals: Assess presence or absence of depression. Using a valid screening tool, maximizes coping skills. Positive support system - Psychosocial Test Tool Used:: HANDS Depression Questionnaire Total Mood Screening Score:: 1 Self-Efficacy Score:: 8 Psychosocial - Final Assessmen - Target Goals Target Goals: Assess presence or absence of depression. Using a valid screening tool, maximizes coping skills. Positive support system - Stages of Change Stages of Change:: Action - Psychosocial Test Tool Used:: HANDS Depression Questionnaire - Intervention PS - Interventions: Yes Attend Stress Management Classes, Yes Uses Stress Management Skills, No Referral to Mental Health, No Referral to [facility] Case Management, No Referral to Physician - Education Education Goal Reached?: Yes - Assistive Devices Assistive Devices:: None Fall Risk Assessed:: Yes Patient Health Questionnaire Discharge Assessment 1. Little interest or pleasure in doing things: Not at all 2. Feeling down, depressed, or hopeless: Not at all 3. Trouble falling or staying asleep, or sleeping too much: Not at all 4. Feeling tired or having little energy: Several days 5. Poor appetite or overeating: Not at all 6. Feeling bad about yourself -- or that you are a failure or have let yourself or your family down: Not at all 7. Trouble concentrating on things, such as reading the newspaper or watching television: Not at all 8. Moving or speaking so slowly that other people could have noticed. Or the opposite - being so fidgety or restless that you have been moving around a lot more than usual: Not at all 9. Thoughts that you would be better off , or of hurting yourself in some way: Not at all How difficult have these problems made it for you to do your work, take care of things at home, or get along with other people?: Not difficult at all Total Score: 1 FAROOQ-Q SV Test - Statements CAD is a disease of the arteries in the heart: True Examples of risk factors for heart disease: True Angina is chest pain or discomfort: True The benefits of resistance training include: False Eating more meat and dairy products: True Anti-platelet medications such as aspirin are important: False The only effective way to manage stress: True An exercise warm-up slowly increases heart rate: True Prepared, processed foods usually have high sodium: True Depression is common after a heart attack: True The statin medications lower cholesterol: True To control blood pressure, lower the amount of sodium: True If someone gets chest discomfort during walking: False Transfats are partially hydrogenated vegetable oils: True Sleep apnea that is not treated increases the risk: False To control cholesterol, one should become a vegetarian: False Someone knows if he/she is exercising at the right level: True Diabetes cannot be prevented with exercise & health eating: False Stress is a large risk for heart attack: True A diet that can help lower blood pressure is rich in: True - Total Score Total Correct Responses: 15 Self-Efficacy Discharge Assessment We would like to know how confident you are in doing certain activities. Please select your confidence level for:: Select your confidence level for the following using the scale 1-10 where 1 is not at all confident and 10 is totally confident. Your score is the average of all 6 responses. Fatigue: How confident are you that you can keep the fatigue caused by your disease from interfering with the things you want to do? Select Number: 9 Physical Discomfort or Pain: How confident are you that you can keep the physical discomfort or pain of your disease from interfering with the things you want to do? Select Number: 8 Emotional Distress: How confident are you that you can keep the emotional distress caused by your disease from interfering with the things you want to do? Select Number: 8 Other Symptoms or Health Problems: How confident are you that you can keep other symptoms or health problems from interfering with the things you want to do? Select Number: 8 Different Tasks and Activities: How confident are you that you can do the different tasks and activities needed to manage your health condition so as to reduce your need to see a doctor? Select Number: 9 Medication: How confident are you that you can do things other than just taking medication to reduce how much your illness affects your everyday life? Select Number: 9 Total Score:: 8 Nutrition Survey - Nutrition Survey Instructions Scoring Instructions: Scoring is as follows: Yes = 1 points. No = 0 point. Patient score that is >/=12 is considered to be at potential nutritional risk and could benefit from a referral to a registered dietitian. - Nutrition Survey Discharge Have you lost >10 lbs over the past 2 months without trying?: No Are you following a special diet at home for diabetes, low fat, or low salt?: Yes Are you interested in meeting with a dietitian for help understanding your diet?: Yes Do you eat less than 3 meals a day?: No Do you eat fatty meats (cano, sausage, ribs, etc), fried foods, desserts, large amounts of salad dressings, margarine, butter, or cheese most days?: No Do you have food allergies? [Enter types in comment field]: Yes Do you eat in restaurants more than 3 times a week?: No Do you season food with salt, seasoning salt, or garlic salt?: Yes Do you used canned, boxed, frozen meals, or soups, seasoning packets?: No Total Score:: 4
[2018-07-01 13:05] VITALS: BP 122/64; BP 180/70
== END 2018-07-05 23:59 ==
LOC: CR 10:15
PROVIDERS: Family Provider Family Medicine; PCP Family Medicine; Visit Provider Internal Medicine Cardiovascular Disease
DX: I25.10 Atherosclerotic heart disease of native coronary artery without angina pectoris (principal); Z95.5 Presence of coronary angioplasty implant and graft
CPT/HCPCS: 93798

== ENCOUNTER 2018-07-10 08:14 | Outpatient (RCR) | payer OTHER, SELFPAY | END 2018-08-05 23:59 | LOC: NS 08:14 | PROVIDERS: Family Provider Family Medicine; PCP Family Medicine; Visit Provider Internal Medicine Cardiovascular Disease | DX: E66.9 Obesity, unspecified (principal); Z68.37 Body mass index [BMI] 37.0-37.9, adult; Z95.5 Presence of coronary angioplasty implant and graft; I10 Essential (primary) hypertension; E78.5 Hyperlipidemia, unspecified; Z71.3 Dietary counseling and surveillance | CPT/HCPCS: 97803 ==

== ENCOUNTER → 2018-08-05 10:16 | Outpatient (CLI) | payer OTHER, SELFPAY ==
[2018-08-05 12:04] LABS: Absolute Lymphocyte Count 1.62 X10^3/ul (0.83-4.51); Absolute Neutrophil Count 3.5 X10^3/uL (2.0-7.7); Basophil# 0.01 X10^3/uL; Basophil% 0.2 % (0-1); Eosinophil# 0.16 X10^3/uL; Eosinophils% 2.7 % (0-5); Hematocrit 46.1 % (40-54); Lymphocyte # 1.62 X10^3/ul (4.0); Lymphocyte % 27.5 % (19-41); Mean Corp Hgb Conc 32.5 g/gl (32-36); Mean Corpuscular Hgb 29.8 pg (27.0-32.0); Mean Corpuscular Volume 91.7 fL (80-94); Mean Platelet Vol. 9.7 fl (6.2-12.0); Monocyte% 10.2 % (0-10); Neutrophil % 59.2 % (47-70); Platelet Count 239 K/mm3 (150-450); RBC Distribution Width CV 13.1 % (11.6-14.6); Red Blood Count 5.03 M/mm3 (4.6-6.2); White Blood Count 5.9 K/mm3 (4.4-11.0)
[2018-08-05 12:05] LABS: POSITIVE COUNT NO; POSITIVE DIFFERENTIAL NO; POSITIVE MORPHOLOGY NO
[2018-08-05 13:02] LABS: ALB/GLOB Ratio 1.2 RATIO (0.9-2.4); AST(SGOT) 26 U/L (15-37); Alanine Aminotransfer ALT/SGPT 56 U/L (16-61); Albumin, Serum 3.7 g/dL (3.2-5.0); Alkaline Phosphatase 51 U/L (45-117); Anion Gap 8 (5-15); BUN 24 mg/dL (7-18); BUN/Creat Ratio 25.6 RATIO (10-20); Calcium,Total 8.6 mg/dL (8.5-10.1); Chloride 103 mmol/L (98-107); Cholesterol 95 mg/dL (200); Creatinine, Serum 0.94 mg/dL (0.70-1.30); EST Glomerular Filtration Rate 89 mL/min (>60); Est Glom Filt Rate - Afr Amer 108 mL/min (>60); Glucose 98 mg/dL (74-106); High Density Lipoprotein 30 mg/dL; Potassium 4.1 mmol/L (3.5-5.1); Protein, Total 6.7 g/dL (6.4-8.2); Sodium Level 141 mmol/L (136-145); Triglycerides 83 mg/dL; Very Low Density Lipoprotein 17 mg/dL (5-40)
== END ==
PROVIDERS: Family Provider Family Medicine; PCP Family Medicine; Visit Provider Family Medicine
DX: I10 Essential (primary) hypertension (principal); E78.5 Hyperlipidemia, unspecified; I25.10 Atherosclerotic heart disease of native coronary artery without angina pectoris; R94.6 Abnormal results of thyroid function studies; Z12.5 Encounter for screening for malignant neoplasm of prostate
CPT/HCPCS: 36415; 80053; 80061; 84153; 84443; 85025; G0103

== ENCOUNTER 2018-08-31 10:30 | Outpatient (RCR) | payer OTHER, SELFPAY | END 2018-09-04 23:59 | LOC: NS 10:30 | PROVIDERS: Family Provider Family Medicine; PCP Family Medicine; Visit Provider Internal Medicine Cardiovascular Disease | DX: E66.9 Obesity, unspecified (principal); I10 Essential (primary) hypertension; E78.5 Hyperlipidemia, unspecified; Z68.37 Body mass index [BMI] 37.0-37.9, adult; Z95.5 Presence of coronary angioplasty implant and graft; Z71.3 Dietary counseling and surveillance | CPT/HCPCS: 97803 ==

== ENCOUNTER 2018-09-15 10:56 | Outpatient (RCR) | payer OTHER, SELFPAY | END 2018-10-05 23:59 | LOC: NS 10:56 | PROVIDERS: Family Provider Family Medicine; PCP Family Medicine; Visit Provider Internal Medicine Cardiovascular Disease | DX: E66.9 Obesity, unspecified (principal); I10 Essential (primary) hypertension; E78.5 Hyperlipidemia, unspecified; Z68.37 Body mass index [BMI] 37.0-37.9, adult; Z95.5 Presence of coronary angioplasty implant and graft; Z71.3 Dietary counseling and surveillance | CPT/HCPCS: 97803 ==

== ENCOUNTER 2018-11-05 09:30 | Outpatient (RCR) | payer OTHER, SELFPAY ==
[2018-09-16 10:09] VITALS: BMI 32.1
== END 2018-11-05 23:59 ==
LOC: NS 09:30
PROVIDERS: Family Provider Family Medicine; PCP Family Medicine; Visit Provider Internal Medicine Cardiovascular Disease
DX: E66.9 Obesity, unspecified (principal); I10 Essential (primary) hypertension; E78.5 Hyperlipidemia, unspecified; Z68.37 Body mass index [BMI] 37.0-37.9, adult; Z95.5 Presence of coronary angioplasty implant and graft; Z71.3 Dietary counseling and surveillance
CPT/HCPCS: 97803

== ENCOUNTER 2018-12-03 09:00 | Outpatient (RCR) | payer OTHER, SELFPAY ==
[2018-09-16 10:09] VITALS: BMI 32.1
== END 2018-12-03 23:59 ==
LOC: NS 09:00
PROVIDERS: Family Provider Family Medicine; PCP Family Medicine; Visit Provider Internal Medicine Cardiovascular Disease
DX: E66.9 Obesity, unspecified (principal); I10 Essential (primary) hypertension; E78.5 Hyperlipidemia, unspecified; Z68.37 Body mass index [BMI] 37.0-37.9, adult; Z95.5 Presence of coronary angioplasty implant and graft; Z71.3 Dietary counseling and surveillance
CPT/HCPCS: 97803

== ENCOUNTER 2018-12-24 11:16 | Outpatient (RCR) | payer OTHER, SELFPAY ==
[2018-09-16 10:09] VITALS: BMI 32.1
== END 2018-12-24 23:59 | disposition home or self-care (01) ==
LOC: NS 11:16
PROVIDERS: Family Provider Family Medicine; PCP Family Medicine; Visit Provider Internal Medicine Cardiovascular Disease
DX: E66.9 Obesity, unspecified (principal); I10 Essential (primary) hypertension; E78.5 Hyperlipidemia, unspecified; Z68.37 Body mass index [BMI] 37.0-37.9, adult; Z95.5 Presence of coronary angioplasty implant and graft; Z71.3 Dietary counseling and surveillance
CPT/HCPCS: 97803

== ENCOUNTER → 2019-08-10 10:22 | Outpatient (CLI) | payer OTHER, SELFPAY ==
[2019-03-25 09:24] VITALS: BMI 32.1
[2019-08-10 12:26] LABS: Absolute Lymphocyte Count 1.62 X10^3/uL (0.83-4.51); Absolute Neutrophil Count 3.1 X10^3/uL (2.0-7.7); Basophil# 0.03 X10^3/uL; Basophil% 0.5 % (0-1); Eosinophil# 0.23 X10^3/uL; Eosinophils% 4.1 % (0-5); Hematocrit 45.7 % (40-54); Hemoglobin 14.6 g/dL (13.0-16.5); Lymphocyte # 1.62 X10^3/ul (4.0); Lymphocyte % 28.7 % (19-41); Mean Corp Hgb Conc 31.9 g/dL (32-36); Mean Corpuscular Hgb 29.4 pg (27.0-32.0); Mean Platelet Vol. 10.1 fl (6.2-12.0); Monocyte# 0.62 X10^3/uL; NRBC Flagged by Analyzer 0 % (0-5); Neutrophil # 3.12 X10^3/uL (2.7-7.7); Neutrophil % 55.3 % (47-70); Platelet Count 246 K/mm3 (150-450); RBC Distribution Width CV 13.1 % (11.6-14.6); RBC Distribution Width SD 44.3 fl (35.1-43.9); Red Blood Count 4.97 M/mm3 (4.6-6.2); White Blood Count 5.6 K/mm3 (4.4-11.0)
[2019-08-10 12:51] LABS: ALB/GLOB Ratio 1.1 RATIO (0.9-2.4); AST(SGOT) 20 U/L (15-37); Alanine Aminotransfer ALT/SGPT 38 U/L (16-61); Albumin, Serum 3.6 g/dL (3.2-5.0); Alkaline Phosphatase 61 U/L (45-117); Anion Gap 6 (5-15); BUN 27 mg/dL (7-18); BUN/Creat Ratio 30.9 RATIO (10-20); Calcium,Total 8.8 mg/dL (8.5-10.1); Chloride 106 mmol/L (98-107); Cholesterol 105 mg/dL (200); Creatinine, Serum 0.88 mg/dL (0.70-1.30); EST Glomerular Filtration Rate 96 mL/min (>60); Est Glom Filt Rate - Afr Amer 116 mL/min (>60); Globulin 3.3 g/dL (2.2-4.2); Glucose 117 mg/dL (74-106); High Density Lipoprotein 29 mg/dL; PSA,Total - Annual Screen 0.92 ng/mL (0.00-4.00); Potassium 3.8 mmol/L (3.5-5.1); Protein, Total 6.9 g/dL (6.4-8.2); Sodium Level 140 mmol/L (136-145); Thyroid Stim Hormone (TSH) 2.16 uIU/mL (0.358-3.74); Triglycerides 101 mg/dL; Very Low Density Lipoprotein 20 mg/dL (5-40)
== END ==
PROVIDERS: Family Provider Family Medicine; PCP Family Medicine; Visit Provider Family Medicine
DX: Z00.01 Encounter for general adult medical examination with abnormal findings (principal)
CPT/HCPCS: 36415; 80053; 80061; 84153; 84443; 85025; G0103

== ENCOUNTER 2019-09-25 17:32 | Observation (INO) | payer OTHER, SELFPAY ==
[2019-03-25 09:24] VITALS: BMI 32.1
[2019-09-25] VITALS (7 sets, daily range): BP systolic 123–169; BP diastolic 68–81; PULSE 66–80; RESP 14–18; TEMP 36.6–36.9; O2SAT 94–99; BMI 38.0; BMI 37.4
--- NOTE | 2019-09-25 17:56 | EKG12_ITS ---
Test Reason : CP Blood Pressure : / mmHG Vent. Rate : 080 BPM Atrial Rate : 080 BPM P-R Int : 160 ms QRS Dur : 108 ms QT Int : 400 ms P-R-T Axes : 046 -12 019 degrees QTc Int : 461 ms Sinus rhythm with frequent and consecutive Premature ventricular complexes in a pattern of bigeminy w ith ventricular escape complexes Possible Left atrial enlargement Left ventricular hypertrophy Nonspecific ST abnormality Abnormal ECG Confirmed by CIRILO YAP, CLAUDY ([id number]), writer editor GIOVANA GREGORY ([id number] on 09/27/2019 1:48:34 PM Referred By: Darron Alejo Confirmed By:CLAUDY KERR MD
--- NOTE | 2019-09-25 17:57 | RAD_ITS ---
STUDY: X-RAY CHEST REASON FOR EXAM: Male, 54 years old. patient having chest pressure for 5 days. pressure got worse today and started feeling in it his neck. hx of stent. TECHNIQUE: Single AP portable view of the chest. COMPARISON: March 01, 2018 FINDINGS: The lungs are clear and expanded. There is no demonstrated pleural abnormality. Normal size heart. Normal mediastinum and sarai. Normal visualized pulmonary arteries. Normal visualized aortic arch and descending thoracic aorta. Normal visualized thoracic spine. Normal visualized ribs, clavicles, and shoulders. There is no demonstrated abnormality of the visualized soft tissue structures of the upper abdomen. RAD/Chest 1 View (Portable) IMPRESSION: Normal x-ray examination of the chest. Electronically Signed: Javan Olivares MD at 18:12 EST , Service support ,
[2019-09-25 18:14] LABS: Absolute Lymphocyte Count 1.73 X10^3/uL (0.83-4.51); Absolute Neutrophil Count 4.3 X10^3/uL (2.0-7.7); Basophil# 0.03 X10^3/uL; Basophil% 0.4 % (0-1); Eosinophil# 0.06 X10^3/uL; Eosinophils% 0.9 % (0-5); Hematocrit 46.8 % (40-54); Hemoglobin 15.5 g/dL (13.0-16.5); Lymphocyte # 1.73 X10^3/ul (4.0); Mean Corp Hgb Conc 33.1 g/dL (32-36); Mean Corpuscular Hgb 29.4 pg (27.0-32.0); Mean Corpuscular Volume 88.8 fL (80-94); Mean Platelet Vol. 9.9 fl (6.2-12.0); Monocyte# 0.78 X10^3/uL; Monocyte% 11.3 % (0-10); NRBC Flagged by Analyzer 0 % (0-5); Neutrophil # 4.31 X10^3/uL (2.7-7.7); Neutrophil % 62.3 % (47-70); Platelet Count 230 K/mm3 (150-450); RBC Distribution Width CV 12.9 % (11.6-14.6); RBC Distribution Width SD 42.1 fl (35.1-43.9); Red Blood Count 5.27 M/mm3 (4.6-6.2); White Blood Count 6.9 K/mm3 (4.4-11.0)
[2019-09-25] MEDS: 0.9% Normal Saline 1,000 ML 150 ML IV ×2 (18:23→20:31)
[2019-09-25 18:31] LABS: Anion Gap 6 (5-15); BUN 25 mg/dL (7-18); BUN/Creat Ratio 24.8 RATIO (10-20); Calcium,Total 9.2 mg/dL (8.5-10.1); Chloride 106 mmol/L (98-107); Creatinine, Serum 1.01 mg/dL (0.70-1.30); EST Glomerular Filtration Rate 82 mL/min (>60); Est Glom Filt Rate - Afr Amer 99 mL/min (>60); Estimated Creatinine Clearance 82.64 ml/min; Glucose 97 mg/dL (74-106); Potassium 3.7 mmol/L (3.5-5.1); Sodium Level 140 mmol/L (136-145)
--- NOTE | 2019-09-25 18:45 | PCM.HP.STD ---
Problem List (1) Chest pain Status: Acute (2) Essential hypertension Status: Chronic (3) Atherosclerotic heart disease of [place] coronary artery without angina pectoris Status: Chronic Qualifiers: [place] vs. transplanted heart: [place] heart Qualified Code(s): I25.10 - Atherosclerotic heart disease of [place] coronary artery without angina pectoris Comment: PTCA/LA NENA of Mid LAD 03/02/18 (4) Presence of stent in coronary artery Status: Chronic Comment: PTCA/LA NENA of Mid LAD 03/02/18 (5) Chest pain Status: Acute (6) Dyspnea Status: Chronic (7) Hyperlipidemia Status: Chronic Qualifiers: Hyperlipidemia type: unspecified Qualified Code(s): E78.5 - Hyperlipidemia, unspecified History of Present Illness Date of Admission: 09/25/19 Chief Complaint: Chest Pain The patient is a 54 year old M with a significant history of CAD status post stent in his LAD in 02/2018; hypertension; obesity; and GERD who presented to emergency department with 3 to 4-day history of left chest heaviness. His pain began gradually and it is episodic. His pain at times can be both aggravated and ameliorated by movement. Denies nausea or vomiting. But he felt clammy and had shortness of breath. A chest pain radiates to his back. It feels like pressure and heaviness reminiscent of his previous CAD requiring coronary stents. Also he had headache; back pain and neck pain that made him take an extra 2 tablets of full dose aspirin. Also on the morning of presentation he took his regular 81 mg aspirin daily. His father had heart attack when his father was in the mid 60s. Past Medical History Past Medical History (Chronic Problems): Chronic Problems (Last Reviewed 09/25/19 @ 21:22 by Darron Alejo MD) Essential hypertension (Chronic) Atherosclerotic heart disease of [place] coronary artery without angina pectoris (Chronic) PTCA/LA NENA of Mid LAD 03/02/18 Presence of stent in coronary artery (Chronic ~03/02/18) PTCA/LA NENA of Mid LAD 03/02/18 Dyspnea (Chronic) Hyperlipidemia (Chronic) Medical History: Medical History (Last Reviewed 09/25/19 @ 21:22 by Darron Alejo MD) Essential hypertension (Chronic) I10 Atherosclerotic heart disease of [place] coronary artery without angina pectoris (Chronic) I25.10 PTCA/LA NENA of Mid LAD 03/02/18 Presence of stent in coronary artery (Chronic) Onset Date: ~03/02/18 Z95.5 PTCA/LA NENA of Mid LAD 03/02/18 Sebaceous cyst (Inactive) L72.3 Dyspnea (Chronic) R06.00 Hyperlipidemia (Chronic) E78.5 Chest pain (Inactive) R07.9 Obesity (BMI 30-39.9) E66.9 Allergic rhinitis J30.9 GERD (gastroesophageal reflux disease) K21.9 Psoriasis L40.9 S/P coronary artery stent placement (Inactive) Onset Date: ~03/02/18 Z95.5 PTCA/LA NENA of Mid LAD 03/02/18 Allergies apples, cherries, banana, plums Allergy (Uncoded 09/25/19 17:42) Shortness of breath Seasonal Allergy (Uncoded 09/25/19 17:42) Other Home Medications: Ambulatory Orders Medication Instructions Recorded aspirin 81 mg tablet,delayed 81 mg PO QDAY 02/26/18 release montelukast 10 mg tablet 10 mg PO DAILY@1200 02/26/18 atorvastatin 80 mg tablet 80 mg PO QDAY #90 tab 04/05/19 clopidogrel 75 mg tablet 75 mg PO DAILY #90 tab 04/05/19 Amlodipine Besylate 5 mg PO DAILY 09/25/19 Benazepril HCl 20 mg PO DAILY 09/25/19 Hydrochlorothiazide [Hctz] 25 mg PO DAILY 09/25/19 Surgical History: Surgical History (Last Reviewed 09/25/19 @ 21:22 by Darron Alejo MD) Presence of coronary angioplasty implant and graft Onset Date: ~03/02/18 Z95.5 PTCA/LA NENA of Mid LAD 03/02/18 History of excision of epidermal inclusion cyst Z98.890, Z87.2 Postsurgical percutaneous transluminal coronary angioplasty (PTCA) status Onset Date: ~03/02/18 Z98.61 PTCA/LA NENA of Mid LAD 03/02/18 Surgical History: no surgical history Smoking Status: Never smoker - *Family History Maternal Family History: Family History (Last Reviewed 09/25/19 @ 19:47 by Darron Alejo MD) Father Heart disease Hypertension Review of Systems Constitutional: Denies: Chills, Fever, Weight Change HEENT: Reports: Head Aches. Denies: Sinus Congestion, Sinus Drainage Cardiovascular: Reports: Chest Pain, Heaviness. Denies: Palpitations Respiratory: Reports: Shortness of Breath. Denies: Cough Gastrointestinal: Denies: Abdominal Pain, Nausea, Vomiting Genitourinary: Denies: Dysuria Musculoskeletal: Reports: Back Pain, Neck Pain. Denies: Joint Pain, Joint Tenderness Skin: Denies: Rash, Wounds Neurological: Denies: Numbness, Tingling, Focal weakness Psychiatric: Denies: Anxiety, Depression, Homicidal Ideations, Suicidal Ideations Hematologic/ Lymphatic: Denies: Easy Bruising, Easy Bleeding VTE Information - Inpt Only VTE Present on Admission: No VTE Mechan Device Prophylaxis: None VTE Pharm Prophylaxis ordered?: Yes Patient Problems: Active and Suspected Problems (Last Reviewed 09/25/19 @ 21:22 by Darron Alejo MD) Chest pain (Acute) - Physical Exam Vitals/I&O's: Vital Signs Temp Pulse Resp BP Pulse Ox 98.5 F 76 18 169/68 H 94 09/25/19 17:32 09/25/19 17:44 09/25/19 17:32 09/25/19 17:32 09/25/19 18:12 Oxygen Delivery Method Room Air Weight: 117 kg Body Mass Index (BMI) 38.0 General: Alert, Oriented x3, Cooperative HEENT: Atraumatic, PERRLA, EOMI, Normocephalic Neck: Supple, No JVD, Negative Carotid Bruits Lungs: Clear to auscultation, Normal air movement Cardiovascular: Regular rate, No murmurs Abdomen: Bowel Sounds Present, Soft, Non Tender Extremities: No edema, Capillary Refill Less than 3 Seconds Skin: No rashes, No breakdown Musculoskeletal: No Tenderness to Palpation of Joints or Extremities Neurological: Cranial nerves II-XII grossly intact Psych/Mental Status: Normal Affect, Appropriate Laboratory Results 09/25/19 17:40: WBC 6.9, RBC 5.27, Hgb 15.5, Hct 46.8, MCV 88.8, MCH 29.4, MCHC 33.1, RDW Std Deviation 42.1, RDW Coeff of Trena 12.9, Plt Count 230, MPV 9.9, Immature Gran % (Auto) 0.100, Neut % (Auto) 62.3, Lymph % (Auto) 25.0, [place] % (Auto) 11.3 H, Eos % (Auto) 0.9, Baso % (Auto) 0.4, Absolute Neuts (auto) 4.3, Absolute Lymphs (auto) 1.73, Nucleated RBC % 0 09/25/19 17:40: Sodium 140, Potassium 3.7, Chloride 106, Carbon Dioxide 28.0, Anion Gap 6, BUN 25 H, Creatinine 1.01, Estim Creat Clear Calc 82.64, Est GFR (MDRD) Af Amer 99, Est GFR (MDRD) Non-Af 82, BUN/Creatinine Ratio 24.8 H, Glucose 97, Calcium 9.2, Troponin I < 0.015 Current Medications Sodium Chloride () 1,000 mls @ 150 mls/hr IV .[id number] MARY Last Admin: 09/25/19 18:23 Dose: 150 mls/hr Documented by: Assessment/Plan All Active Problems (Last Reviewed 09/25/19 @ 21:22 by Darron Alejo MD) Chest pain (Acute) Chest pain (Acute) The patient is a 54 year old M with a significant history of CAD status post stent in his LAD in 02/2018; hypertension; obesity; and GERD who presented to emergency department with 3 to 4-day history of left chest heaviness. Chest pain Place on a monitored bed at PCU CXR independently reviewed confirms no acute cardiopulmonary process. EKG independently reviewed confirms sinus rhythm with bigeminal PVCs ASA 81 mg p.o. daily SL NTG 0.4 mg prn as needed for chest pain We will check lipid panel. 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 Trend blood pressure and adjust blood pressure medications. Bigeminal PVCs Potassium was 3.7; replaced. Check magnesium. DVT prophylaxis Lovenox Code Visit OBSV E&M: [id number] Initial observation care L2
--- NOTE | 2019-09-25 19:20 | ED.DCSUM_ITS ---
- ER Visit Summary Date of Service: 09/25/19 Chief Complaint: Chest pain History of Present Illness: The patient is a [address] Leonardo on Dr. Howell. He reports that he has chest pain that began 3 days ago. Its and intermittent substernal heaviness that is brought on by exertion and resolves after 5 to 10 minutes of rest. He reports is 4-10 at worst and is pain-free currently. This does make him short of breath. He denies any associated nausea, vomiting, or diaphoresis. States that it radiates up to the back of the left side of his neck. He also reports he has had palpitations over the same timeframe. Physical Examination: Vitals: Stable. Afebrile. General: Well-nourished and well-developed. Head: Normocephalic atraumatic. Neck: Supple, no lymphadenopathy. No JVD. Nontender. Cardiovascular: Irregularly irregular rhythm. No murmurs. Respiratory: No respiratory distress. Clear to auscultation bilaterally. Abdominal: Soft, nontender, nondistended, normal bowel sounds. No guarding, rebound, or peritoneal signs. Back: Nontender. Extremities: Nontender, 1+ edema lower extremities bilaterally. Skin: Normal color, no rash. Neurologic: Alert and oriented ?3. Cranial nerves II through XII are intact. Normal strength and sensation. Psych: Normal affect. Test Results: EKG shows ventricular bigeminy at a rate of 80. Troponin is negative. Chem-7 shows a BUN of 25. CBC shows monocytes of 11. Chest x-ray is normal. Emergency Department Course and Treatment: Patient had already taken aspirin today so he was not given 1 here. He is resting comfortably and is pain-free. Treatment Plan: Patient was discussed with Dr. Alejo. He will be admitted to the hospital for further evaluation and treatment. Disposition: Admitted in stable condition. Impression: 1. Chest pain. 2. Ventricular bigeminy. This note was generated with [employer] dictation software. It may contain incorrect words, spelling, and punctuation that were not noted in review of the chart prior to signing
--- NOTE | 2019-09-25 19:50 | EKG12_ITS ---
Test Reason : CP ADMISSION Blood Pressure : / mmHG Vent. Rate : 064 BPM Atrial Rate : 064 BPM P-R Int : 170 ms QRS Dur : 108 ms QT Int : 430 ms P-R-T Axes : 040 -12 013 degrees QTc Int : 443 ms Sinus rhythm with occasional Premature ventricular complexes Left ventricular hypertrophy Abnormal ECG No previous ECGs available Confirmed by RITA YAP, KAITLYN ([id number]), communications editor GIOVANA GREGORY ([id number]) on 10/01/2019 11:16:51 AM Referred By: Darron Alejo Confirmed By:MOHINI SALINAS MD
[2019-09-25] MEDS: Atorvastatin Calcium 80 MG Tablet PO (20:28)
[2019-09-25 21:16] LABS: Magnesium 1.9 mg/dL (1.6-2.6)
[2019-09-26] VITALS (12 sets, daily range): BP systolic 112–149; BP diastolic 50–75; PULSE 58–78; RESP 14–16; TEMP 36.4–36.9; O2SAT 96–98
[2019-09-26] MEDS: 0.9% Normal Saline 1,000 ML 150 ML IV ×2 (02:43→09:11)
[2019-09-26 06:50] LABS: International Normalized Ratio 1.2; Prothrombin Time (Protime)PT. 14.8 SECONDS (11.7-14.9)
[2019-09-26 07:06] LABS: Cholesterol 100 mg/dL (200); High Density Lipoprotein 30 mg/dL; Triglycerides 63 mg/dL; Very Low Density Lipoprotein 13 mg/dL (5-40)
[2019-09-26] MEDS: Acetaminophen 325 MG Tablet 650 MG PO (07:55)
[2019-09-26] MEDS: Aspirin E.C. 81 MG Tablet PO (09:02)
[2019-09-26] MEDS: Enoxaparin 40 MG/0.4 ML Syringe SC (09:02)
[2019-09-26] MEDS: amLODIPine 5 MG Tablet PO (09:02)
[2019-09-26] MEDS: Clopidogrel Bisulfate 75 MG Tablet PO (09:03)
[2019-09-26] MEDS: Lisinopril 40 MG Tablet PO (09:04)
[2019-09-26] MEDS: Montelukast 10 MG Tablet PO (09:05)
[2019-09-26] MEDS: hydroCHLOROthiazide 25 MG Tablet PO (09:05)
--- NOTE | 2019-09-26 11:20 | PCM.PN.HOSP ---
Patient Problems: Active and Suspected Problems (Last Reviewed 09/25/19 @ 21:22 by Darron Alejo MD) Chest pain (Acute) Subjective: Pt is feeling okay right now. Doesn't really have pain but it does feel like a squeezing in his chest when it happens and is very pamela to his sx when he required a stent but not as severe. Vitals/I&O's: Vital Signs Temp Pulse Resp BP Pulse Ox 98.5 F 71 16 149/61 H 96 09/26/19 09:01 09/26/19 09:01 09/26/19 09:01 09/26/19 09:01 09/26/19 09:01 Oxygen Delivery Method Room Air Weight: 115 kg Body Mass Index (BMI) 37.4 Intake and Output for Last 24 Hours 09/24/19 09/25/19 09/26/19 23:59 23:59 23:59 Intake Total 320 / 720 2542.5 / 2542.5 Balance 320 / 720 2542.5 / 2542.5 General: Alert, Oriented x3, Cooperative, No apparent distress, Well developed, Well nourished Neck: Supple, No JVD, No Nodes, Trachea Midline, Thyroid Normal Size and Texture Lungs: Clear to auscultation, Normal air movement, No rhonchi, No wheeze, No rales Cardiovascular: Regular rate, Regular Rhythm, Normal S1, Normal S2, No murmurs, No Ectopic Activity Abdomen: Bowel Sounds Present, Soft, Non Tender, Non-Distended, No Hepato-splenomegaly, Obese, No hernias noted Extremities: No clubbing, No cyanosis, Edema - 1+ hands and feet/legs Skin: No rashes, No breakdown Musculoskeletal: No Tenderness to Palpation of Joints or Extremities, No Muscle Wasting Neurological: Cranial nerves II-XII grossly intact, Neuro grossly intact Psych/Mental Status: Normal Affect, Alert and oriented to time, place, person, mood and affect Laboratory Results 09/25/19 17:40: WBC 6.9, RBC 5.27, Hgb 15.5, Hct 46.8, MCV 88.8, MCH 29.4, MCHC 33.1, RDW Std Deviation 42.1, RDW Coeff of Trena 12.9, Plt Count 230, MPV 9.9, Immature Gran % (Auto) 0.100, Neut % (Auto) 62.3, Lymph % (Auto) 25.0, Gilchrist % (Auto) 11.3 H, Eos % (Auto) 0.9, Baso % (Auto) 0.4, Absolute Neuts (auto) 4.3, Absolute Lymphs (auto) 1.73, Nucleated RBC % 0 09/25/19 17:40: Sodium 140, Potassium 3.7, Chloride 106, Carbon Dioxide 28.0, Anion Gap 6, BUN 25 H, Creatinine 1.01, Estim Creat Clear Calc 82.64, Est GFR (MDRD) Af Amer 99, Est GFR (MDRD) Non-Af 82, BUN/Creatinine Ratio 24.8 H, Glucose 97, Calcium 9.2, Troponin I < 0.015 09/25/19 20:40: Magnesium 1.9, Troponin I < 0.015 09/25/19 23:50: Troponin I < 0.015 09/26/19 05:48: Triglycerides 63, Cholesterol 100, LDL Cholesterol 57, VLDL Cholesterol 13, HDL Cholesterol 30 L 09/26/19 05:48: PT 14.8, INR 1.2 Current Medications Acetaminophen (Tylenol) 650 mg PO Q6H PRN PRN PRN Reason: Pain Score 1-10/Temp > 100.7 F Last Admin: 09/26/19 07:55 Dose: 650 mg Documented by: Amlodipine Besylate (Norvasc) 5 mg PO DAILY [facility] Last Admin: 09/26/19 09:02 Dose: 5 mg Documented by: Aspirin (Ecotrin) 81 mg PO DAILY [facility] Last Admin: 09/26/19 09:02 Dose: 81 mg Documented by: Atorvastatin Calcium (Lipitor) 80 mg PO QHS [facility] Last Admin: 09/25/19 20:28 Dose: 80 mg Documented by: Clopidogrel Bisulfate (Plavix) 75 mg PO DAILY [facility] Last Admin: 09/26/19 09:03 Dose: 75 mg Documented by: Enoxaparin Sodium (Lovenox) 40 mg SC DAILY [facility] Last Admin: 09/26/19 09:02 Dose: 40 mg Documented by: Glucagon () 1 mg IM .X1 PRN PRN Reason: Hypoglycemia Hydrochlorothiazide (Hctz) 25 mg PO DAILY [facility] Last Admin: 09/26/19 09:05 Dose: 25 mg Documented by: Dextrose (Dextrose 10%-Water) 250 mls @ 999 mls/hr IV .Q16M PRN; Protocol PRN Reason: HYPOGLYCEMIA Lisinopril (Zestril) 40 mg PO DAILY [facility] Last Admin: 09/26/19 09:04 Dose: 40 mg Documented by: Melatonin (Melatonin) 3 mg PO QHS PRN PRN PRN Reason: INSOMNIA Montelukast Sodium (Singulair) 10 mg PO DAILY@1200 [facility] Last Admin: 09/26/19 09:05 Dose: 10 mg Documented by: Nitroglycerin (Nitrostat) 0.4 mg SUBLINGUAL Q5M PRN PRN Reason: CHEST PAIN Ondansetron HCl (Zofran) 4 mg IV Q8H PRN PRN PRN Reason: NAUSEA/VOMITING Sodium Chloride () 10 - 40 ml IV UD PRN PRN Reason: SALINE FLUSH STROKE Vital Signs/Narrative: Vital Signs Temp Pulse Resp BP Pulse Ox 09/26/19 09:01 98.5 F 71 16 149/61 H 96 09/26/19 07:50 98.4 F 78 16 119/57 L 98 Medical Necessity - Tobacco Use Smoking Status: Never smoker Assessment/Plan All Active Problems (Last Reviewed 09/25/19 @ 21:22 by Darron Alejo MD) Chest pain (Acute) Chest pain (Acute) CP -typical of his cardiac CP from previously -d/c stress test and consult cardiology stress vs cath since sx are c/w previous sx prior to PCI -NPO after MN -contniue ASA -troponin are neg x 2 -follows with Dr. Leonardo (has appt 10/04/19) -d/c IVF CAD with PCI to LAD 02/2018 -f/u stress test 03/2018 was neg -contniue asa/plavix/statin/ACEI -pt not on BB HPL -statin -lipids checked and are controlled HTN Continue Norvasc/HCTZ/Benazepril Severe Obesity -recommend wgt loss DVT prophylaxis -Lovenox daily Code Visit Inpatient E&M: 07242 Subs Hosp L2
[2019-09-26] MEDS: Atorvastatin Calcium 80 MG Tablet PO (21:19)
[2019-09-27] VITALS (15 sets, daily range): BP systolic 111–151; BP diastolic 57–79; PULSE 54–82; RESP 14–16; TEMP 36.4–36.8; O2SAT 92–98
[2019-09-27] MEDS: Clopidogrel Bisulfate 75 MG Tablet PO (07:50)
[2019-09-27] MEDS: Lisinopril 40 MG Tablet PO (07:50)
[2019-09-27] MEDS: Aspirin E.C. 81 MG Tablet PO (07:50)
[2019-09-27] MEDS: hydroCHLOROthiazide 25 MG Tablet PO (07:50)
[2019-09-27] MEDS: amLODIPine 5 MG Tablet PO (07:50)
--- NOTE | 2019-09-27 07:50 | PCM.CONS.C ---
Reason for Consult Date of Consultation: 09/27/19 Reason for Consultation: Chest heaviness and fatigue History of Present Illness: The patient is a 54 year old M with a history of coronary artery disease status post previous angioplasty and stenting of his left anterior descending artery in February 2018. He says that more recently he has begun to feel some right shoulder discomfort as well as chest heaviness which is not dissimilar to from what he had in the past. He has been compliant with his medications. He is also noted some fatigue. He denies any palpitations no paroxysmal nocturnal dyspnea or pedal edema. He has had no dizziness or diaphoresis no near syncope or syncope. He presented to the emergency room was evaluated and admitted. He was initially scheduled for a stress test. His EKG demonstrated normal sinus rhythm with a rate of 64 bpm and premature ventricular complexes. It was however felt that on the basis of his symptoms he should see cardiology. [] Past Medical History Allergies/Adverse Reactions: Allergies apples, cherries, banana, plums Allergy (Uncoded 09/25/19 17:42) Shortness of breath Seasonal Allergy (Uncoded 09/25/19 17:42) Other Home Medications: Ambulatory Orders Medication Instructions Recorded aspirin 81 mg tablet,delayed 81 mg PO QDAY 02/26/18 release montelukast 10 mg tablet 10 mg PO DAILY@1200 02/26/18 atorvastatin 80 mg tablet 80 mg PO QDAY #90 tab 04/05/19 clopidogrel 75 mg tablet 75 mg PO DAILY #90 tab 04/05/19 Amlodipine Besylate 5 mg PO DAILY 09/25/19 Benazepril HCl 40 mg PO DAILY 09/25/19 Hydrochlorothiazide [Hctz] 25 mg PO DAILY 09/25/19 Past Medical History (Chronic Problems): Chronic Problems (Last Reviewed 09/25/19 @ 21:22 by Darron Alejo MD) Essential hypertension (Chronic) Atherosclerotic heart disease of [place] coronary artery without angina pectoris (Chronic) PTCA/LA NENA of Mid LAD 03/02/18 Presence of stent in coronary artery (Chronic ~03/02/18) PTCA/LA NENA of Mid LAD 03/02/18 Dyspnea (Chronic) Hyperlipidemia (Chronic) Surgical History: no surgical history - *Family History Maternal Family History: Family History (Last Reviewed 09/25/19 @ 19:47 by Darron Alejo MD) Father Heart disease Hypertension Smoking Status: Never smoker Alcohol: None Drugs: None Review of Systems - Review of Systems General: Reports: Fatigue. Denies: Fever, Night Sweats HEENT: Denies: Vision Change Cardiovascular: Reports: Chest Discomfort. Denies: Shortness of Breath, Orthopnea, PND, Peripheral Edema, Palpitations, Lightheadedness, Dizziness, Near Syncope, Syncope Respiratory: Denies: Cough, Sputum Production, Hemoptysis Gastrointestinal: Denies: Hematemesis, Hematochezia, Melena Genitourinary: Denies: Dysuria, Hematuria Muscoloskeletal: Denies: Myalgias Skin: Denies: Rash Neurological: Denies: Dizziness Psychiatric: Denies: Anxiety Objective: Vital Signs Temp Pulse Resp BP Pulse Ox 97.6 F L 82 16 141/65 H 95 09/27/19 06:10 09/27/19 07:00 09/27/19 06:10 09/27/19 06:10 09/27/19 07:20 Oxygen Delivery Method Room Air Weight: 253 lb 8.505 oz Body Mass Index (BMI) 37.4 Intake and Output for Last 24 Hours 09/25/19 09/26/19 09/27/19 23:59 23:59 23:59 Intake Total 320 / 720 4582.5 / 4582.5 Balance 320 / 720 4582.5 / 4582.5 General: Awake, Alert, Oriented x 3 HEENT: PERRL, EOMI, Sclera Non Icteric Neck: Supple, Good ROM, No Lymph Node Enlargement Lungs: Clear to auscultation Cardiovascular: Regular Rhythm, Normal S1, Normal S2, No Murmurs, No Rubs, No Gallops Vascular: No Carotid Bruits, Normal Femoral Pulses, Normal Radial Pulses, Normal Dorsalis Pedal Pulse, Normal Posterior Tibial Pulses Abdomen: Bowel Sounds Present, Soft, Non Tender, No HSM, No Organomegaly Extremities: No Cyanosis, No Clubbing, No edema Neurological: No Focal Motor or Sensory Deficit Rhythm: EKG: ECHO: Stress Test: Cardiac Cath: PCI: CT Surgery: Holter monitor: EPS: PPM: CXR: Chest CT Scan: Assessment/Plan 1. Chest discomfort Patient presents with chest discomfort. This is reminiscent of his previous discomfort when he had his angioplasty. His EKG thus far is benign and his cardiac enzymes normal. After extensive discussion with the patient and his family they would prefer an invasive approach. I would recommend we continue his current medical therapy and perform a left heart catheterization. The risk benefits and alternatives have been explained to him he understands and agrees to proceed depending on the findings further recommendations will be made. 2. Hypertension His blood pressure appears to be under good control at this particular time no other major changes will need to be made. 3. Hyperlipidemia His lipid profile at the moment appears to be acceptable. He does have a low HDL of 30 and exercise and nuts have been advocated. Thank you for allowing me to participate in the care of your patient. Please don't hesitate to call if any issues arise Addendum: Cardiac catheterization performed today demonstrates patency of his previously placed stent with his other vessels being normal. The ventricular ejection fraction is also noted to be normal. Based on the above angiographic finding he does not appear that his coronaries are responsible for his symptoms. He can be discharged for outpatient follow-up with Dr. Leonardo.
[2019-09-27] MEDS: 0.9% Normal Saline 1,000 ML 15 ML IV (08:13)
--- NOTE | 2019-09-27 09:15 | CASEMGMT ---
JASBIR LAM NOTE: According to [facility] Website, the following facilities are IN-network with [facility]: [facility], [facility], [facility], [facility] ([facility] [place]), [facility], [facility], [facility], [place].
--- NOTE | 2019-09-27 09:24 | CL.D_ITS ---
Patient Name: JANICE CLARK Study Date: 09/27/2019 Performing: Gagan Moreno MD Ht: 69 inches 175 cm : 1965 Wt: 253.9 lbs 115 kg Age: 54 Gender: male BSA: 2.28 PROCEDURE(S) PERFORMED MG56-TOI/COR/LV CLINICAL PROFILE AND INDICATIONS Indications: Worsening Angina Heart Failure: None Stress/Imaging Stress/Image Study Performed: No CAD Presentations: Unstable angina. CONCLUSIONS Previously placed stent in the left anterior descending artery does not have any significant stenosis , the circumflex artery has no significant disease in the right coronary artery is nondominant. Pres erved ejection fraction is noted RECOMMENDATIONS Medical therapy DESCRIPTION OF PROCEDURE The patient arrived to the procedure lab. The risks and benefits of the procedure as well as a full d escription of our services here and current unavailability of surgical backup were fully explained to the patient and/or their significant other prior to the catheterization. The Timeout was completed, verifying the correct patient and procedure. The patient's procedural site was prepped and draped in the usual fashion. Local anesthetic was given subcutaneously to right radial region with Lidocaine 2% . Using a modified Seldinger technique, arterial access was obtained via the right radial artery, a 6 Fr sheath was inserted. Left Coronary Artery selective angiography was performed in multiple views u sing a 5 Fr. 4.0 [place] catheter. Right Coronary Artery selective angiography was then performed in mu ltiple views using a 5 Fr. 4.0 [place] catheter. Left Ventriculography was performed in MISTRY projection using a 5 Fr. [place] catheter. LV to AO pullback pressures were then recorded.The arterial sheath was pulled and a TR Band was applied for hemostasis 12cc air CORONARY ANGIOGRAPHY DOMINANCE: Left Dominant LEFT HEART ASSESSMENT Left Ventricular Ejection Fraction: by LV Gram 60 % Normal LV wall motion Normal Left Ventricular systolic function LEFT MAIN: Angiographically normal LEFT ANTERIOR DESCENDING ARTERY: Previously placed stent is patent, Mild luminal irregularities CIRCUMFLEX ARTERY: No significant disease noted RIGHT CORONARY ARTERY: Angiographically normal COMPLICATIONS No Complications PROCEDURE MEDICATIONS Fentanyl 50 mcg IV Versed 1 mg IV Oxygen: 2 L/min via nasal cannula SUMMARY OF HEMODYNAMIC DATA Time AIR REST ECG 08:25:41 ECG 08:52:34 AO 130/73 (94) SA 09:02:44 LV 115/0, 0 09:07:45 LV 115/0, 1 09:07:51 LV 107/2, 5 09:08:38 LVp 116/2, 6 09:08:44 AOp 120/75 (95) 09:08:49 Signed By Gagan Moreno MD On 09/27/2019 09:23:21 Gagan Moreno MD
[2019-09-27] MEDS: 0.9% Normal Saline 1,000 ML 100 ML IV (09:38)
--- NOTE | 2019-09-27 12:03 | PCM.DC.SUM ---
Discharge Date and Diagnosis - Problem List Patient Problems: Active and Suspected Problems (Last Updated 09/27/19 @ 09:43 by Nancy Arellano) Chest pain (Acute) Date of Admission: 09/25/19 Date of Discharge: 09/27/19 - Primary Discharge Diagnosis Active and Suspected Problems (Last Updated 09/27/19 @ 09:43 by Nancy Arellano) Chest pain (Acute) - Secondary Discharge Diagnosis Chronic Problems (Last Updated 09/27/19 @ 09:43 by Nancy Arellano) Essential hypertension (Chronic) Atherosclerotic heart disease of [place] coronary artery without angina pectoris (Chronic) PTCA/LA NENA of Mid LAD 03/02/18 Presence of stent in coronary artery (Chronic 03/02/18) PTCA/LA NENA of Mid LAD 03/02/18 Dyspnea (Chronic) Hyperlipidemia (Chronic) Hospital Course and Treatment Imaging Results: Cardiac Catheterization: Patent area at previous stent and no other significant CAD noted. Preserved EF. Cardiology Operations: None Procedures: Cardiac catheterization Summary of Care Provided: Mr. Hector is a 54 year old M with a pertenent h/o CAD s/p LAD stent in 2018 who presented to the ED on 09/25 with a 3-4 day history of L chest heaviness that was associated with clamminess and dyspnea. The pain was reminicent but not as severe as he had experienced in the past when his stent was placed in 2018. He was admitted to the PCU. Troponin were cycled and were negative x2. Cardiology was consulted and the decision with he sx and hx was to perform a cardiac catheterization. Cath was done in the am of 09/27 and was negative for any new lesions and his previous sent was patent. He had not had any further chest sx since admission and was discharged in stable condition on 09/27. Patient Problems: Active and Suspected Problems (Last Updated 09/27/19 @ 09:43 by Nancy Arellano) Chest pain (Acute) Subjective: Feeling well. No CP/heaviness overnight. - Physical Exam Vitals/I&O's: Vital Signs Temp Pulse Resp BP Pulse Ox 97.6 F L 70 14 122/57 H 95 09/27/19 06:10 09/27/19 10:30 09/27/19 10:30 09/27/19 10:30 09/27/19 10:30 Oxygen Delivery Method Room Air Weight: 115 kg Body Mass Index (BMI) 37.4 Intake and Output for Last 24 Hours 09/25/19 09/26/19 09/27/19 23:59 23:59 23:59 Intake Total 320 / 720 4582.5 / 4582.5 Balance 320 / 720 4582.5 / 4582.5 General: Alert, Oriented x3, Cooperative, No apparent distress, Well developed, Well nourished, - - lying in bed, watching TV Lungs: Clear to auscultation, Normal air movement, No rhonchi, No rales Cardiovascular: Regular rate, Regular Rhythm, Normal S1, Normal S2, No murmurs, No Ectopic Activity, No rub noted, No Gallop Abdomen: Bowel Sounds Present, Soft, Non Tender, Non-Distended, No hernias noted Extremities: No clubbing, No cyanosis, No edema Skin: No rashes, - - R radial cath site without oozing, compression is still in place Neurological: Cranial nerves II-XII grossly intact, Deep Tendon Reflexes 2+/4 and Symmetrical, Neuro grossly intact, Motor Exam 5/5 strength throughout Psych/Mental Status: Appropriate, Alert and oriented to time, place, person, mood and affect Current Medications Acetaminophen (Tylenol) 650 mg PO Q6H PRN PRN PRN Reason: Pain Score 1-10/Temp > 100.7 F Last Admin: 09/26/19 07:55 Dose: 650 mg Documented by: Amlodipine Besylate (Norvasc) 5 mg PO DAILY [facility] Last Admin: 09/27/19 07:50 Dose: 5 mg Documented by: Aspirin (Ecotrin) 81 mg PO DAILY [facility] Last Admin: 09/27/19 07:50 Dose: 81 mg Documented by: Atorvastatin Calcium (Lipitor) 80 mg PO QHS [facility] Last Admin: 09/26/19 21:19 Dose: 80 mg Documented by: Clopidogrel Bisulfate (Plavix) 75 mg PO DAILY [facility] Last Admin: 09/27/19 07:50 Dose: 75 mg Documented by: Enoxaparin Sodium (Lovenox) 40 mg SC DAILY [facility] Last Admin: 09/26/19 09:02 Dose: 40 mg Documented by: Glucagon () 1 mg IM .X1 PRN PRN Reason: Hypoglycemia Hydrochlorothiazide (Hctz) 25 mg PO DAILY [facility] Last Admin: 09/27/19 07:50 Dose: 25 mg Documented by: Dextrose (Dextrose 10%-Water) 250 mls @ 999 mls/hr IV .Q16M PRN; Protocol PRN Reason: HYPOGLYCEMIA Sodium Chloride () 1,000 mls @ 15 mls/hr IV .Q48H [facility] Last Infusion: 09/27/19 09:41 Dose: Infused Documented by: Sodium Chloride () 1,000 mls @ 100 mls/hr IV .Q10H [facility] Last Admin: 09/27/19 09:38 Dose: 100 mls/hr Documented by: Lisinopril (Zestril) 40 mg PO DAILY [facility] Last Admin: 09/27/19 07:50 Dose: 40 mg Documented by: Melatonin (Melatonin) 3 mg PO QHS PRN PRN PRN Reason: INSOMNIA Montelukast Sodium (Singulair) 10 mg PO DAILY@1200 [facility] Last Admin: 09/26/19 09:05 Dose: 10 mg Documented by: Nitroglycerin (Nitrostat) 0.4 mg SUBLINGUAL Q5M PRN PRN Reason: CHEST PAIN Ondansetron HCl (Zofran) 4 mg IV Q8H PRN PRN PRN Reason: NAUSEA/VOMITING Sodium Chloride () 10 - 40 ml IV UD PRN PRN Reason: SALINE FLUSH Home Medications: Medications to take at Discharge aspirin 81 mg tablet,delayed release 81 mg PO QDAY 02/26/18 montelukast 10 mg tablet 10 mg PO DAILY@1200 02/26/18 atorvastatin 80 mg tablet 80 mg PO QDAY #90 tab 04/05/19 clopidogrel 75 mg tablet 75 mg PO DAILY #90 tab 04/05/19 Amlodipine Besylate 5 mg PO DAILY 09/25/19 Benazepril HCl 40 mg PO DAILY 09/25/19 Hydrochlorothiazide [Hctz] 25 mg PO DAILY 09/25/19 Primary Care Physician: Ruba Howell DO [Primary Care Provider] - Medical Necessity - Tobacco Use Smoking Status: Never smoker Meaningful Use Info Meaningful Use Diagnoses (Choose all that apply): None applicable Code Visit Inpatient E&M: 26039 Disch Hosp
--- NOTE | 2019-09-27 12:12 | DCINST_ITS ---
- Discharge Diagnoses Current Active Problems: Current Active and Chronic Problems (Last Updated 09/27/19 @ 09:43 by Nancy Arellano) Chest pain (Acute) You will use the following diet at home:: Cardiac Your food should be the consistency of: Regular Your liquids should be the consistency of: Regular/Thin Discharge Activity: Return to Normal Activity - 09/28/19 May resume sexual activity in: No Restrictions Call your doctor if your incision/area has: Continuous Slow Oozing, Sudden Increased Bleeding, Increased Pain/ Swelling, Increased Redness Call your doctor if you observe: Shortness of breath, Dizziness, Fainting spells, Chest pain Allergies/Adverse Reactions: Allergies apples, cherries, banana, plums Allergy (Uncoded 09/25/19 17:42) Shortness of breath Seasonal Allergy (Uncoded 09/25/19 17:42) Other Medications to take at Discharge aspirin 81 mg tablet,delayed release 81 mg PO QDAY 02/26/18 montelukast 10 mg tablet 10 mg PO DAILY@1200 02/26/18 atorvastatin 80 mg tablet 80 mg PO QDAY #90 tab 04/05/19 clopidogrel 75 mg tablet 75 mg PO DAILY #90 tab 04/05/19 Amlodipine Besylate 5 mg PO DAILY 09/25/19 Benazepril HCl 40 mg PO DAILY 09/25/19 Hydrochlorothiazide [Hctz] 25 mg PO DAILY 09/25/19 Primary Care Physician: Ruba Howell DO [Primary Care Provider] - Please follow up with your Primary Care Physician in: as needed Test Results: Test results from this visit will be discussed in further detail at your follow- up appointment, if applicable. Please Follow Up With: Dr. Leonardo When: 10/04 as scheduled
== END 2019-09-27 09:17 | disposition home or self-care (01) ==
LOC: ED 18:09 → PCU 19:38
PROVIDERS: Admitting Provider Hospitalist; Emergency Provider Emergency Medicine; Family Provider Family Medicine; PCP Family Medicine; Referring Provider Hospitalist; Visit Provider Internal Medicine
DX: R07.89 Other chest pain (principal); I25.10 Atherosclerotic heart disease of native coronary artery without angina pectoris; E78.5 Hyperlipidemia, unspecified; K21.9 Gastro-esophageal reflux disease without esophagitis; E66.9 Obesity, unspecified; L40.9 Psoriasis, unspecified; R06.02 Shortness of breath; Z95.5 Presence of coronary angioplasty implant and graft; Z79.899 Other long term (current) drug therapy; Z79.82 Long term (current) use of aspirin; Z79.02 Long term (current) use of antithrombotics/antiplatelets; Z68.37 Body mass index [BMI] 37.0-37.9, adult; Z71.3 Dietary counseling and surveillance; Z82.49 Family history of ischemic heart disease and other diseases of the circulatory system
CPT/HCPCS: 36415; 71045; 80048; 80061; 83735; 84484; 85025; 85610; 93005; 93458; 96360; 96361; 96372; 99152; 99218; 99285; J7030; A4216; C1769; C1894; G0378; Q9967

== ENCOUNTER → 2019-10-20 10:54 | Outpatient (CLI) | payer OTHER, SELFPAY ==
[2019-10-04 11:02] VITALS: BMI 38.0
== END ==
PROVIDERS: Family Provider Family Medicine; PCP Family Medicine; Referring Provider Internal Medicine Cardiovascular Disease; Visit Provider Internal Medicine Cardiovascular Disease
DX: I49.3 Ventricular premature depolarization (principal); I25.10 Atherosclerotic heart disease of native coronary artery without angina pectoris; I10 Essential (primary) hypertension; E78.5 Hyperlipidemia, unspecified; Z95.5 Presence of coronary angioplasty implant and graft
CPT/HCPCS: 93225; 93226

== ENCOUNTER → 2020-04-20 09:56 | Outpatient (CLI) | payer OTHER, SELFPAY ==
[2019-10-04 11:02] VITALS: BMI 38.0
[2020-04-06 10:04] VITALS: BMI 37.2
[2020-04-20 13:05] LABS: Absolute Lymphocyte Count 1.62 X10^3/uL (0.83-4.51); Absolute Neutrophil Count 2.8 X10^3/uL (2.0-7.7); Basophil# 0.03 X10^3/uL; Basophil% 0.6 % (0-1); Eosinophil# 0.12 X10^3/uL; Eosinophils% 2.3 % (0-5); Hematocrit 47.8 % (40-54); Lymphocyte # 1.62 X10^3/ul (4.0); Mean Corp Hgb Conc 31.4 g/dL (32-36); Mean Corpuscular Hgb 29.6 pg (27.0-32.0); Mean Corpuscular Volume 94.3 fL (80-94); Mean Platelet Vol. 10.3 fl (6.2-12.0); Monocyte# 0.66 X10^3/uL; Monocyte% 12.6 % (0-10); NRBC Flagged by Analyzer 0 % (0-5); Neutrophil # 2.79 X10^3/uL (2.7-7.7); Neutrophil % 53.3 % (47-70); Platelet Count 231 K/mm3 (150-450); RBC Distribution Width CV 12.9 % (11.6-14.6); RBC Distribution Width SD 44.2 fl (35.1-43.9); Red Blood Count 5.07 M/mm3 (4.6-6.2); White Blood Count 5.2 K/mm3 (4.4-11.0)
[2020-04-20 13:32] LABS: ALB/GLOB Ratio 1.3 RATIO (0.9-2.4); AST(SGOT) 22 U/L (15-37); Alanine Aminotransfer ALT/SGPT 40 U/L (16-61); Albumin, Serum 3.8 g/dL (3.2-5.0); Alkaline Phosphatase 47 U/L (45-117); Anion Gap 5 (5-15); BUN 25 mg/dL (7-18); Calcium,Total 8.7 mg/dL (8.5-10.1); Chloride 107 mmol/L (98-107); Cholesterol 101 mg/dL (200); Creatinine, Serum 0.93 mg/dL (0.70-1.30); EST Glomerular Filtration Rate 90 mL/min (>60); Est Glom Filt Rate - Afr Amer 109 mL/min (>60); Globulin 2.9 g/dL (2.2-4.2); Glucose 103 mg/dL (74-106); High Density Lipoprotein 31 mg/dL; PSA,Total - Annual Screen 0.94 ng/mL (0.00-4.00); Potassium 3.8 mmol/L (3.5-5.1); Protein, Total 6.7 g/dL (6.4-8.2); Sodium Level 141 mmol/L (136-145); Thyroid Stim Hormone (TSH) 2.98 uIU/mL (0.358-3.74); Triglycerides 67 mg/dL; Very Low Density Lipoprotein 13 mg/dL (5-40)
== END ==
PROVIDERS: PCP Family Medicine; Visit Provider Family Medicine
DX: Z00.01 Encounter for general adult medical examination with abnormal findings (principal); Z12.5 Encounter for screening for malignant neoplasm of prostate
CPT/HCPCS: 36415; 80053; 80061; 84153; 84443; 85025; G0103

== ENCOUNTER → 2020-04-25 06:09 | Outpatient (CLI) | payer OTHER, SELFPAY ==
[2020-04-06 10:04] VITALS: BMI 37.2
--- NOTE | 2020-04-25 07:58 | STRESSREP_ITS ---
Stress Test Report Date: 04-25-2020 Procedure: Exercise tolerance test/imaging study Indications: Chest pain; shortness of breath/dyspnea; palpitations; CAD; PCI Consent: Per the patient Procedure: The patient exercised on a [place] protocol for 9 minutes completing Stage III achieving a peak heart rate of 141 bpm (85 % predicted maximal heart rate) with a peak blood pressure 220/78 mmHg and a peak MET capacity of 10 METs. The baseline ECG demonstrated sinus rhythm. The peak exercise ECG demonstrated no obvious ECG changes. There were occasional to frequent PVCs and intermittent episodes of ventricular bigeminy pretest, occasional to frequent PVCs and an isolated ventricular triplet during exercise, and occasional PVCs, rare ventricular couplet triplet, and intermittent episodes of ventricular bigeminy during recovery There was no complaint of chest discomfort during exercise or recovery. The examination was discontinued secondary to dyspnea. Impression: 1. Technically adequate (percent predicted maximal heart rate greater than 85%) exercise tolerance test 2. Peak exercise ECG with no obvious ECG changes 3. There were occasional to frequent PVCs and intermittent episodes of ventricular bigeminy pretest, occasional to frequent PVCs and an isolated ventricular triplet during exercise, and occasional PVCs, rare ventricular couplet triplet, and intermittent episodes of ventricular bigeminy during recovery 4. Nuclear images pending Myocardial perfusion imaging study: Technique: The patient was injected with mCi of technetium 99m Cardiolite and subsequently rest SPECT Cardiolite nuclear imaging was obtained in the horizontal long, vertical long, and short axis views. The patient exercised on a [place] protocol for 9 minutes completing Stage III achieving a peak heart rate of 141 bpm (85 % predicted maximal heart rate) with a peak blood pressure 220/78 mmHg and a peak MET capacity of 10 METs. The patient was injected with mCi of technetium 99m Cardiolite and subsequently stress SPECT Cardiolite nuclear imaging was obtained in the horizontal long, vertical long, and short axis views. A gated Cardiolite study at peak stress was obtained. Interpretation: Rest and stress SPECT Cardiolite nuclear imaging status post realignment, normalization, and attenuation correction, demonstrates the appearance of a small area of subtle diminished tracer uptake near the apical segments without significant change between rest and stress. There is end systolic thickening and brightening. The gated Cardiolite study demonstrates myocardial thickening and inward wall motion. The reported LVEF is 60 %. Impression: 1. Rest and stress SPECT Cardiolite nuclear imaging demonstrate myocardial perfusion change appearing compatible with the effects of physiologic apical thinning with no myocardial perfusion changes considered diagnostic for associated stress-induced myocardial ischemia. 2. The gated Cardiolite study reports an LVEF of 60 %. This note was generated with [employer] software. It may contain incorrect words, spelling, and punctuation that were not noted in checking the note before signing.
== END ==
PROVIDERS: PCP Family Medicine; Referring Provider Internal Medicine Cardiovascular Disease; Visit Provider Internal Medicine Cardiovascular Disease
DX: R07.9 Chest pain, unspecified (principal); I25.10 Atherosclerotic heart disease of native coronary artery without angina pectoris; I49.3 Ventricular premature depolarization; I10 Essential (primary) hypertension; E78.5 Hyperlipidemia, unspecified; Z95.5 Presence of coronary angioplasty implant and graft
CPT/HCPCS: 78452; 93017; 93225; 93226; A9500; A4216

== ENCOUNTER → 2020-11-07 10:01 | Outpatient (CLI) | payer OTHER, SELFPAY ==
[2020-05-10 14:44] VITALS: BMI 38.0
[2020-11-07 12:18] LABS: Erythrocyte Sedimentation Rate 2 mm/hr (0-20)
[2020-11-07 12:22] LABS: Absolute Lymphocyte Count 1.56 X10^3/uL (0.83-4.51); Absolute Neutrophil Count 4.7 X10^3/uL (2.0-7.7); Basophil# 0.03 X10^3/uL; Basophil% 0.4 % (0-1); Eosinophil# 0.09 X10^3/uL; Eosinophils% 1.3 % (0-5); Hematocrit 48.3 % (40-54); Hemoglobin 15.5 g/dL (13.0-16.5); Lymphocyte # 1.56 X10^3/ul (4.0); Lymphocyte % 21.9 % (19-41); Mean Corp Hgb Conc 32.1 g/dL (32-36); Mean Corpuscular Hgb 29.9 pg (27.0-32.0); Mean Corpuscular Volume 93.1 fL (80-94); Mean Platelet Vol. 10.5 fl (6.2-12.0); Monocyte# 0.76 X10^3/uL; Monocyte% 10.7 % (0-10); NRBC Flagged by Analyzer 0 % (0-5); Neutrophil # 4.66 X10^3/uL (2.7-7.7); Neutrophil % 65.4 % (47-70); Platelet Count 235 K/mm3 (150-450); RBC Distribution Width CV 12.7 % (11.6-14.6); RBC Distribution Width SD 43.4 fl (35.1-43.9); Red Blood Count 5.19 M/mm3 (4.6-6.2); White Blood Count 7.1 K/mm3 (4.4-11.0)
[2020-11-07 12:37] LABS: ALB/GLOB Ratio 1.2 RATIO (0.9-2.4); AST(SGOT) 21 U/L (15-37); Alanine Aminotransfer ALT/SGPT 33 U/L (16-61); Albumin, Serum 3.7 g/dL (3.2-5.0); Alkaline Phosphatase 57 U/L (45-117); Anion Gap 6 (5-15); BUN 30 mg/dL (7-18); BUN/Creat Ratio 29.1 RATIO (10-20); CRP < 2.90 mg/L (0.0-3.0); Calcium,Total 8.9 mg/dL (8.5-10.1); Chloride 104 mmol/L (98-107); Creatinine, Serum 1.03 mg/dL (0.70-1.30); EST Glomerular Filtration Rate 79 mL/min (>60); Est Glom Filt Rate - Afr Amer 96 mL/min (>60); Globulin 3.1 g/dL (2.2-4.2); Glucose 87 mg/dL (74-106); Potassium 3.8 mmol/L (3.5-5.1); Protein, Total 6.8 g/dL (6.4-8.2); Sodium Level 140 mmol/L (136-145)
[2020-11-08 17:16] LABS: ANTINUCLEAR ANTIBODIES DIRECT Negative (Negative)
[2020-11-09 13:28] LABS: CCP IgG Antibodies 13 units (0-19)
== END ==
PROVIDERS: PCP Family Medicine; Referring Provider Family Medicine; Visit Provider Family Medicine
DX: M25.50 Pain in unspecified joint (principal); L40.50 Arthropathic psoriasis, unspecified; D64.9 Anemia, unspecified
CPT/HCPCS: 36415; 80053; 85025; 85652; 86038; 86140; 86200; 86225; 86235; 86431

== ENCOUNTER → 2021-08-20 09:23 | Outpatient (CLI) | payer OTHER, SELFPAY ==
[2021-08-20 10:06] LABS: Absolute Lymphocyte Count 1.38 X10^3/uL (0.83-4.51); Absolute Neutrophil Count 3.7 X10^3/uL (2.0-7.7); Basophil# 0.03 X10^3/uL; Basophil% 0.5 % (0-1); Eosinophil# 0.16 X10^3/uL; Eosinophils% 2.7 % (0-5); Hematocrit 49.2 % (40-54); Hemoglobin 15.8 g/dL (13.0-16.5); Lymphocyte # 1.38 X10^3/ul (0.83-4.51); Lymphocyte % 23.4 % (19-41); Mean Corp Hgb Conc 32.1 g/dL (32-36); Mean Corpuscular Hgb 29.3 pg (27.0-32.0); Mean Corpuscular Volume 91.3 fL (80-94); Mean Platelet Vol. 9.6 fl (6.2-12.0); Monocyte# 0.66 X10^3/uL; Monocyte% 11.2 % (0-10); NRBC Flagged by Analyzer 0 % (0-5); Neutrophil # 3.65 X10^3/uL (2.7-7.7); Neutrophil % 61.9 % (47-70); Platelet Count 228 K/mm3 (150-450); RBC Distribution Width CV 12.8 % (11.6-14.6); RBC Distribution Width SD 42.4 fl (35.1-43.9); Red Blood Count 5.39 M/mm3 (4.6-6.2); White Blood Count 5.9 K/mm3 (4.4-11.0)
[2021-08-20 10:50] LABS: AST(SGOT) 26 U/L (15-37); Alanine Aminotransfer ALT/SGPT 45 U/L (16-61); Albumin, Serum 3.6 g/dL (3.2-5.0); Alkaline Phosphatase 61 U/L (45-117); Anion Gap 5 (5-15); BUN 19 mg/dL (7-18); BUN/Creat Ratio 18.8 RATIO (10-20); Calcium,Total 9.2 mg/dL (8.5-10.1); Chloride 104 mmol/L (98-107); Cholesterol 116 mg/dL (200); Creatinine, Serum 1.01 mg/dL (0.70-1.30); EST Glomerular Filtration Rate 81 mL/min (>60); Est Glom Filt Rate - Afr Amer 98 mL/min (>60); Globulin 3.5 g/dL (2.2-4.2); Glucose 111 mg/dL (74-106); High Density Lipoprotein 34 mg/dL; PSA,Total - Annual Screen 0.95 ng/mL (0.00-4.00); Potassium 4.1 mmol/L (3.5-5.1); Protein, Total 7.1 g/dL (6.4-8.2); Sodium Level 139 mmol/L (136-145); Triglycerides 90 mg/dL; Very Low Density Lipoprotein 18 mg/dL (5-40)
== END ==
PROVIDERS: PCP Family Medicine; Referring Provider Family Medicine; Visit Provider Family Medicine
DX: Z00.00 Encounter for general adult medical examination without abnormal findings (principal); Z12.5 Encounter for screening for malignant neoplasm of prostate; Z51.81 Encounter for therapeutic drug level monitoring; E78.5 Hyperlipidemia, unspecified
CPT/HCPCS: 36415; 80053; 80061; 84153; 85025; G0103

== ENCOUNTER → 2022-04-10 | Outpatient (CLI) | payer OTHER, SELFPAY ==
[2022-04-10 12:05] LABS: Absolute Lymphocyte Count 1.34 X10^3/uL (0.83-4.51); Basophil# 0.02 X10^3/uL; Basophil% 0.4 % (0-1); Eosinophil# 0.11 X10^3/uL; Eosinophils% 2.2 % (0-5); Hematocrit 47.2 % (40-54); Hemoglobin 15.4 g/dL (13.0-16.5); Lymphocyte # 1.34 X10^3/ul (0.83-4.51); Lymphocyte % 26.7 % (19-41); Mean Corp Hgb Conc 32.6 g/dL (32-36); Mean Corpuscular Hgb 29.8 pg (27.0-32.0); Mean Corpuscular Volume 91.5 fL (80-94); Mean Platelet Vol. 9.7 fl (6.2-12.0); Monocyte# 0.54 X10^3/uL; Monocyte% 10.8 % (0-10); NRBC Flagged by Analyzer 0 % (0-5); Neutrophil # 2.99 X10^3/uL (2.7-7.7); Neutrophil % 59.7 % (47-70); Platelet Count 194 K/mm3 (150-450); RBC Distribution Width CV 12.9 % (11.6-14.6); RBC Distribution Width SD 43.2 fl (35.1-43.9); Red Blood Count 5.16 M/mm3 (4.6-6.2)
[2022-04-10 12:45] LABS: ALB/GLOB Ratio 1.1 RATIO (0.9-2.4); AST(SGOT) 28 U/L (15-37); Alanine Aminotransfer ALT/SGPT 42 U/L (16-61); Albumin, Serum 3.6 g/dL (3.2-5.0); Alkaline Phosphatase 47 U/L (45-117); Anion Gap 5 (5-15); BUN 26 mg/dL (7-18); BUN/Creat Ratio 29.9 RATIO (10-20); Calcium,Total 8.9 mg/dL (8.5-10.1); Chloride 104 mmol/L (98-107); Cholesterol 113 mg/dL (200); Creatinine, Serum 0.87 mg/dL (0.70-1.30); EST Glomerular Filtration Rate 96 mL/min (>60); Est Glom Filt Rate - Afr Amer 116 mL/min (>60); Globulin 3.3 g/dL (2.2-4.2); Glucose 110 mg/dL (74-106); High Density Lipoprotein 32 mg/dL; Protein, Total 6.9 g/dL (6.4-8.2); Sodium Level 139 mmol/L (136-145); Triglycerides 67 mg/dL; Very Low Density Lipoprotein 13 mg/dL (5-40)
== END | disposition home or self-care (01) ==
PROVIDERS: PCP Family Medicine; Referring Provider Family Medicine; Visit Provider Family Medicine
DX: Z00.00 Encounter for general adult medical examination without abnormal findings (principal); Z12.5 Encounter for screening for malignant neoplasm of prostate; Z51.81 Encounter for therapeutic drug level monitoring; E78.5 Hyperlipidemia, unspecified
CPT/HCPCS: 36415; 80053; 80061; 84153; 85025; G0103

== ENCOUNTER → 2023-02-12 | Outpatient (CLI) | payer OTHER, SELFPAY ==
[2023-02-12 12:33] LABS: Absolute Neutrophil Count 2.7 X10^3/uL (2.0-7.7); Basophil# 0.04 X10^3/uL; Basophil% 0.8 % (0-1); Eosinophil# 0.15 X10^3/uL; Hematocrit 42.8 % (40-54); Hemoglobin 14.3 g/dL (13.0-16.5); Lymphocyte % 30.5 % (19-41); Mean Corp Hgb Conc 33.4 g/dL (32-36); Mean Corpuscular Hgb 30.5 pg (27.0-32.0); Mean Corpuscular Volume 91.3 fL (80-94); Mean Platelet Vol. 9.3 fl (6.2-12.0); Monocyte% 10.2 % (0-10); NRBC Flagged by Analyzer 0 % (0-5); Neutrophil # 2.71 X10^3/uL (2.7-7.7); Neutrophil % 55.1 % (47-70); Platelet Count 274 K/mm3 (150-450); RBC Distribution Width CV 12.9 % (11.6-14.6); RBC Distribution Width SD 42.3 fl (35.1-43.9); Red Blood Count 4.69 M/mm3 (4.6-6.2); White Blood Count 4.9 K/mm3 (4.4-11.0)
[2023-02-12 12:47] LABS: ALB/GLOB Ratio 1.1 RATIO (0.9-2.4); AST(SGOT) 28 U/L (15-37); Alanine Aminotransfer ALT/SGPT 66 U/L (16-61); Albumin, Serum 3.5 g/dL (3.2-5.0); Alkaline Phosphatase 55 U/L (45-117); Anion Gap 3 (5-15); BUN 24 mg/dL (7-18); BUN/Creat Ratio 27.3 RATIO (10-20); Calcium,Total 8.8 mg/dL (8.5-10.1); Chloride 105 mmol/L (98-107); Cholesterol 121 mg/dL (200); Creatinine, Serum 0.88 mg/dL (0.70-1.30); EST Glomerular Filtration Rate 95 mL/min (>60); Est Glom Filt Rate - Afr Amer 114 mL/min (>60); Free T3 2.8 pg/mL (2.18-3.98); Globulin 3.1 g/dL (2.2-4.2); Glucose 117 mg/dL (74-106); High Density Lipoprotein 40 mg/dL; PSA,Total- Diagnostic 1.31 ng/mL (0.0-4.0); Potassium 3.7 mmol/L (3.5-5.1); Protein, Total 6.6 g/dL (6.4-8.2); Sodium Level 138 mmol/L (136-145); T4 Free Direct 1.11 ng/dL (0.76-1.46); Thyroid Stim Hormone (TSH) 2.31 uIU/mL (0.358-3.74); Triglycerides 82 mg/dL; Very Low Density Lipoprotein 16 mg/dL (5-40)
== END | disposition home or self-care (01) ==
LOC: MTLAB 10:14
PROVIDERS: PCP Family Medicine; Referring Provider Family Medicine; Visit Provider Family Medicine
DX: Z00.00 Encounter for general adult medical examination without abnormal findings (principal); Z12.5 Encounter for screening for malignant neoplasm of prostate; E78.5 Hyperlipidemia, unspecified; R53.83 Other fatigue
CPT/HCPCS: 36415; 80053; 80061; 84153; 84439; 84443; 84481; 85025

== ENCOUNTER → 2024-02-10 | Outpatient (CLI) | payer OTHER, SELFPAY ==
--- NOTE | 2024-02-10 14:02 | ECHOCS_ITS ---
Reason For Study: Palpitations Procedure This was a 2D Doppler, Color Flow transthoracic echocardiogram. Contrast injection was performed. Technically difficult study due to arrhythmia. Exam performed in department. Left Ventricle Normal LV size. Left ventricular systolic function is normal. The estimated ejection fraction is 60 %. Stage 1 diastolic dysfunction. No regional wall motion abnormalities noted. Right Ventricle Normal RV size. Normal systolic function. Atria The left atrium is mildly enlarged. Normal right atrium. Tricuspid Valve Normal tricuspid valve. Mild tricuspid valve insufficiency. Pulmonary artery systolic pressure is 35 mmHg. Aortic Valve Normal aortic valve. Mild (1+) aortic valve insufficiency. Great Vessels Normal aortic root. The pulmonary artery is normal size. Normal inferior vena cava. Pericardium/Pleural No pericardial effusion. Medication 22 gauge I.V. with prn adaptor inserted into left arm. Diluted definity 2.5ml given slow IV push to enhance endocardial definition. MMode/2D Measurements & Calculations LVIDd: 5.6 cm IVSd: 1.1 cm Ao root diam: 3.6 cm LVIDs: 4.0 cm LVPWd: 0.95 cm LA dimension: 5.1 cm FS: 27.5 % LAV(MOD-bp): 89.5 ml LVAd ap4: 39.5 cm2 SV(MOD-sp4): 84.7 ml LAV(MOD-bp) Indexed: 38.8 ml/m2 LVLd ap4: 9.1 cm LAV(MOD-sp2): 90.9 ml EDV(MOD-sp4): 143.8 ml LAV(MOD-sp4): 82.3 ml EDV(sp4-el): 145.4 ml LVAs ap4: 22.3 cm2 LVLs ap4: 7.1 cm ESV(MOD-sp4): 59.1 ml ESV(sp4-el): 59.3 ml EF(MOD-sp4): 58.9 % EF(sp4-el): 59.2 % SV(sp4-el): 86.1 ml LA A4 area: 25.0 cm2 Time Measurements MV dec time: 0.18 sec Doppler Measurements & Calculations MV E max gurjit: 71.4 cm/sec Lat Peak E' Gurjit: 13.4 cm/sec Med Peak E' Gurjit: 6.0 cm/sec MV A max gurjit: 80.6 cm/sec E/E' lat: 5.3 E/E' med: 11.9 MV E/A: 0.89 MV V2 max: 94.2 cm/sec MV P1/2t max gurjit: 80.8 cm/sec Ao V2 max: 113.1 cm/sec MV max P.6 mmHg MV P1/2t: 74.7 msec Ao max P.1 mmHg MV V2 mean: 47.8 cm/sec MV dec slope: 316.6 cm/sec2 Ao V2 mean: 79.7 cm/sec MV mean P.1 mmHg Ao mean P.8 mmHg MV V2 VTI: 27.0 cm MVA(P1/2t): 2.9 cm2 Ao V2 VTI: 28.1 cm AV (velocity ratio): 1.1 LV V1 max: 121.1 cm/sec PA V2 max: 84.7 cm/sec PI dec slope: 119.3 cm/sec2 LV V1 max P.9 mmHg LV V1 mean P.9 mmHg LV V1 mean: 79.3 cm/sec LV V1 VTI: 29.7 cm TR max gurjit: 283.8 cm/sec TR max P.2 mmHg ECHO/Echo Complete W/ Contrast Interpretation Summary Normal LV size. Left ventricular systolic function is normal. The estimated ejection fraction is 60 %. Stage 1 diastolic dysfunction. The left atrium is mildly enlarged. Contrast injection was performed. Ordering Physician: Dora Spaulding Referring Physician: Ruba Howell Performed By: Steve Still RCS
== END | disposition home or self-care (01) ==
LOC: CVS 14:01
PROVIDERS: PCP Family Medicine; Referring Provider Physician Assistant Medical; Visit Provider Physician Assistant Medical
DX: I49.3 Ventricular premature depolarization (principal)
CPT/HCPCS: 93306; Q9957; A4216; C8929

== ENCOUNTER → 2024-04-26 | Outpatient (CLI) | payer OTHER, SELFPAY ==
[2024-04-26 17:42] LABS: Absolute Lymphocyte Count 1.71 X10^3/uL (0.83-4.51); Absolute Neutrophil Count 4.7 X10^3/uL (2.0-7.7); Basophil# 0.03 X10^3/uL; Basophil% 0.4 % (0-1); Eosinophil# 0.18 X10^3/uL; Eosinophils% 2.4 % (0-5); Hematocrit 46.5 % (40-54); Hemoglobin 15.1 g/dL (13.0-16.5); Lymphocyte # 1.71 X10^3/ul (0.83-4.51); Lymphocyte % 22.9 % (19-41); Mean Corp Hgb Conc 32.5 g/dL (32-36); Mean Corpuscular Hgb 29.7 pg (27.0-32.0); Mean Corpuscular Volume 91.5 fL (80-94); Mean Platelet Vol. 9.5 fl (6.2-12.0); Monocyte# 0.83 X10^3/uL; Monocyte% 11.1 % (0-10); NRBC Flagged by Analyzer 0 % (0-5); Neutrophil # 4.71 X10^3/uL (2.7-7.7); Neutrophil % 63.1 % (47-70); Platelet Count 216 K/mm3 (150-450); RBC Distribution Width CV 12.7 % (11.6-14.6); RBC Distribution Width SD 42.8 fl (35.1-43.9); Red Blood Count 5.08 M/mm3 (4.6-6.2); White Blood Count 7.5 K/mm3 (4.4-11.0)
[2024-04-26 18:07] LABS: ALB/GLOB Ratio 1.2 RATIO (0.9-2.4); AST(SGOT) 32 U/L (15-37); Alanine Aminotransfer ALT/SGPT 45 U/L (16-61); Albumin, Serum 4.1 g/dL (3.2-5.0); Alkaline Phosphatase 49 U/L (45-117); Anion Gap 7 (5-15); BUN 23 mg/dL (7-18); BUN/Creat Ratio 26.3 RATIO (10-20); Calcium,Total 9.3 mg/dL (8.5-10.1); Chloride 104 mmol/L (98-107); Cholesterol 111 mg/dL (200); Creatinine, Serum 0.87 mg/dL (0.70-1.30); EST Glomerular Filtration Rate 95 mL/min (>60); Est Glom Filt Rate - Afr Amer 115 mL/min (>60); Globulin 3.4 g/dL (2.2-4.2); Glucose 90 mg/dL (74-106); High Density Lipoprotein 39 mg/dL; PSA,Total - Annual Screen 1.12 ng/mL (0.00-4.00); Protein, Total 7.5 g/dL (6.4-8.2); Sodium Level 138 mmol/L (136-145); Triglycerides 64 mg/dL; Very Low Density Lipoprotein 13 mg/dL (5-40)
[2024-04-26 18:08] LABS: Hemoglobin A1c 6.2 % (3.8-5.6)
== END | disposition home or self-care (01) ==
LOC: MTLAB 16:18
PROVIDERS: PCP Family Medicine; Referring Provider Family Medicine; Visit Provider Family Medicine
DX: Z51.81 Encounter for therapeutic drug level monitoring (principal); Z12.5 Encounter for screening for malignant neoplasm of prostate; E78.5 Hyperlipidemia, unspecified; R73.01 Impaired fasting glucose
CPT/HCPCS: 36415; 80053; 80061; 83036; 84153; 85025; G0103

== ENCOUNTER → 2025-05-24 | Outpatient (CLI) | payer BC, SELFPAY ==
[2025-05-24 18:16] LABS: Hematocrit 45.5 % (40-54); Hemoglobin 15.0 g/dL (13.0-16.5); Immature Granulocytes Count 0.040 X10^3/uL (0.0-0.0); Mean Corp Hgb Conc 33.0 g/dL (32-36); Mean Corpuscular Volume 91.4 fL (80-94); Mean Platelet Vol. 10.2 fl (6.2-12.0); NRBC Flagged by Analyzer 0 % (0-5); Platelet Count 226 K/mm3 (150-450); RBC Distribution Width CV 13.0 % (11.6-14.6); RBC Distribution Width SD 43.7 fl (35.1-43.9); Red Blood Count 4.98 M/mm3 (4.6-6.2); White Blood Count 8.1 K/mm3 (4.4-11.0)
[2025-05-24 19:06] LABS: Cholesterol 140 mg/dL (<=200); Low Density Lipoprotein Calc. 82 mg/dL; PSA,Total - Annual Screen 0.76 ng/mL (0.02-4.00); Triglycerides 68 mg/dL; Very Low Density Lipoprotein 14 mg/dL (5-40); cholesterol:hdl ratio screen 3.12
[2025-05-24 19:25] LABS: AST(SGOT) 25 U/L (<=37); Alanine Aminotransfer ALT/SGPT 30 U/L (<=46); Albumin, Serum 4.2 g/dL (3.4-4.8); Alkaline Phosphatase 52 U/L (40-129); Anion Gap 13 (5-15); BUN 28 mg/dL (4-19); BUN/Creat Ratio 27.7 RATIO (10-20); Calcium,Total 9.6 mg/dL (7.6-11.0); Carbon Dioxide 25.5 mmol/L (21.0-32.0); Chloride 101 mmol/L (98-108); Globulin 2.8 g/dL (2.2-4.2); Glucose 100 mg/dL (70-99); Potassium 3.9 mmol/L (3.3-5.1)
== END | disposition home or self-care (01) ==
LOC: MTLAB 15:41
PROVIDERS: Internal Medicine Cardiovascular Disease; PCP Family Medicine; Referring Provider Family Medicine; Visit Provider Family Medicine
DX: E78.5 Hyperlipidemia, unspecified (principal); I25.10 Atherosclerotic heart disease of native coronary artery without angina pectoris; Z51.81 Encounter for therapeutic drug level monitoring; Z12.5 Encounter for screening for malignant neoplasm of prostate; R73.01 Impaired fasting glucose
CPT/HCPCS: 36415; 80053; 80061; 83036; 84153; 85025; G0103

== ENCOUNTER → 2025-05-31 | Outpatient (CLI) | payer BC, SELFPAY ==
--- NOTE | 2025-05-31 15:25 | RAD_ITS ---
EXAM: XR Right Hip With Pelvis When Performed, 2 or 3 Views CLINICAL INDICATION: PAIN IN RIGHT HIP TECHNIQUE: Two or three views of the right hip with pelvis when performed. COMPARISON: No relevant prior studies available. 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 No acute fracture. No dislocation. SOFT TISSUES: Unremarkable. RAD/HIP, UNI W/ Pelvis 2-3 Views IMPRESSION: Degenerative changes as above. Reading Location: [id number]
== END | disposition home or self-care (01) ==
LOC: MTRAD 15:20
PROVIDERS: PCP Family Medicine; Referring Provider Family Medicine; Visit Provider Family Medicine
DX: M25.551 Pain in right hip (principal)
CPT/HCPCS: 73502